=== PATIENT | male | born 1950 | race Caucasian/White ===

== ENCOUNTER 2017-11-12 07:11 | Emergency (ER) | payer MEDICARE, OTHER, SELFPAY ==
[2017-11-12 07:11] VITALS: PULSE 61; RESP 18; TEMP 36.6; O2SAT 96; BMI 34.4
[2017-11-12 07:24] VITALS: BP 130/85; PULSE 61; RESP 14; O2SAT 98
[2017-11-12 07:35] LABS: Bedside Glucose 89 mg/dL (70-110)
--- NOTE | 2017-11-12 07:50 | EKG12_ITS ---
Test Reason : NUMBNESS Blood Pressure : / mmHG Vent. Rate : 055 BPM Atrial Rate : 055 BPM P-R Int : 174 ms QRS Dur : 096 ms QT Int : 428 ms P-R-T Axes : 042 -28 -51 degrees QTc Int : 409 ms Sinus bradycardia Nonspecific T wave abnormality Abnormal ECG Confirmed by CHUCK PARTIDA, SHERLY ([id number]), news editor PIPPA GHOTRA ([id number]) on 11/16/2017 2:31:05 PM Referred By: KELLEE Confirmed By:SHERLY WOODS MD
--- NOTE | 2017-11-12 08:00 | RAD_ITS ---
STUDY: X-RAY CHEST REASON FOR EXAM: Male, 66 years old. Chest pain. Left arm pain. TECHNIQUE: PA and lateral views of the chest. COMPARISON: Comparison is made with prior study dated August 15, 2013. FINDINGS: EKG electrodes are seen. The lungs are clear and expanded. There is no demonstrated pleural abnormality. Normal size heart. Normal mediastinum and mariel. Normal visualized pulmonary arteries. There is atherosclerotic tortuosity of the aortic arch and descending thoracic aorta. Normal visualized thoracic spine. Normal visualized ribs, clavicles, and shoulders. There is no demonstrated abnormality of the visualized soft tissue structures of the upper abdomen. RAD/Chest PA and Lateral IMPRESSION: No acute abnormalities present. Electronically Signed: Cong Burnett MD at 8:47 EST Tel [phone], Service support ,
--- NOTE | 2017-11-12 08:03 | ED.DCSUM_ITS ---
- ER Visit Summary Date of Service: 11/12/17 Chief Complaint: Left arm pain History of Present Illness: The patient is a 66 M resents with paresthesias and left arm pain. Patient states that yesterday he was outside digging post holes and building a ramp. He states a couple times he had a stitch in his chest. Last night around midnight he woke with a pain in his left arm described as medial to posterior near the armpit to the elbow. He then developed a dullness sensation in his fingers particularly the index and long fingers. He states that the ring and little finger are minimally involved. Notes no arm weakness. He has pain in the medial aspect of his arm with full extension at the elbow. Otherwise he has no elbow pain. He notes no loss of muscle strength. No shortness of breath or sweating. Patient denies any neck pain or chest pain with palpation or movement. Physical Examination: Afebrile vital signs are stable Gen: Well-nourished well-developed Head: Normocephalic atraumatic Eyes: Perrl EOMI ENT: TMs clear no rhinorrhea moist mucous membranes Neck: Supple no lymphadenopathy no JVD nontender CVS: Regular rate rhythm no murmurs normal S1-S2 Respiratory: No distress clear to auscultation bilaterally chest nontender Abdomen: Soft nontender nondistended normal bowel sounds no masses Back: Nontender Extremity: Nontender no edema Skin: Normal color no rash Neuro: alert orientated ?3 CN II-XII intact normal strength reflexes gait cerebellar patient has reported decreased sensation over the index and long fingertips. He notes very minimal change in sensation over the ring and little finger tips. There is no thumb involvement. There is no involvement of the forearm. Psych: Normal affect normal mood Test Results: EKG demonstrates a sinus bradycardia at a rate of 55. This appears unchanged from 2013. CBC chemistries were negative. Troponin negative. Emergency Department Course and Treatment: I believe this to be a peripheral nerve problem. The troponin is greater than 8 hours of symptoms. His EKG shows a normal sinus rhythm. Patient will rest the arm avoid strenuous activity. If symptoms do not improve he will follow-up with his primary care physician. Impression: 1. Left arm paresthesias This note was generated with [employer] software. It may contain incorrect words, spelling, and punctuation that were not noted in review of the chart prior to signing ED Disposition - Plan for ED Patient: Disposition: Home or Assisted Living Chief Complaint: Numb/Ting Instructions: ED Paraesthesias Referrals: Jelena Patiño MD [Primary Care Provider] - 1 Week if not improving
[2017-11-12 08:13] LABS: Absolute Lymphocyte Count 1.31 X10^3/ul (0.83-4.51); Absolute Neutrophil Count 2.9 X10^3/uL (2.0-7.7); Basophil# 0.01 X10^3/uL; Basophil% 0.2 % (0-1); Eosinophil# 0.12 X10^3/uL; Eosinophils% 2.4 % (0-5); Hemoglobin 12.1 g/dl (13.0-16.5); Lymphocyte # 1.31 X10^3/ul (4.0); Lymphocyte % 26.4 % (19-41); Mean Corp Hgb Conc 32.7 g/gl (32-36); Mean Corpuscular Hgb 30.2 pg (27.0-32.0); Mean Corpuscular Volume 92.3 fL (80-94); Mean Platelet Vol. 9.3 fl (6.2-12.0); Monocyte# 0.67 X10^3/uL; Monocyte% 13.5 % (0-10); Neutrophil # 2.85 X10^3/uL (2.7-7.7); Neutrophil % 57.5 % (47-70); Platelet Count 187 K/mm3 (150-450); RBC Distribution Width SD 47.1 fl (35.1-43.9); Red Blood Count 4.01 M/mm3 (4.6-6.2)
[2017-11-12 08:16] LABS: POSITIVE COUNT NO; POSITIVE DIFFERENTIAL NO; POSITIVE MORPHOLOGY NO
[2017-11-12 08:26] LABS: Anion Gap 5 (5-15); BUN 20 mg/dL (7-18); BUN/Creat Ratio 20.9 RATIO (10-20); Calcium,Total 8.2 mg/dL (8.5-10.1); Chloride 105 mmol/L (98-107); Creatinine, Serum 0.96 mg/dL (0.70-1.30); EST Glomerular Filtration Rate 84 mL/min (>60); Est Glom Filt Rate - Afr Amer 101 mL/min (>60); Estimated Creatinine Clearance 79.21 ml/min; Glucose 87 mg/dL (74-106); Potassium 4.1 mmol/L (3.5-5.1); Sodium Level 138 mmol/L (136-145)
[2017-11-12 08:59] VITALS: BP 125/84; PULSE 60; RESP 17; O2SAT 94
== END 2017-11-12 09:04 | disposition home or self-care (01) ==
PROVIDERS: Emergency Provider Emergency Medicine; Family Provider Family Medicine; PCP Family Medicine
DX: R20.2 Paresthesia of skin (principal); M79.602 Pain in left arm; I10 Essential (primary) hypertension; R00.1 Bradycardia, unspecified; Z79.82 Long term (current) use of aspirin; Z79.899 Other long term (current) drug therapy
CPT/HCPCS: 71046; 80048; 82962; 84484; 85025; 93005; 99285; A4216

== ENCOUNTER → 2017-12-28 11:08 | Outpatient (CLI) | payer MEDICARE, OTHER, SELFPAY ==
[2017-12-28 12:50] LABS: Anion Gap 7 (5-15); BUN 15 mg/dL (7-18); BUN/Creat Ratio 15.5 RATIO (10-20); Calcium,Total 8.7 mg/dL (8.5-10.1); Chloride 104 mmol/L (98-107); Creatinine, Serum 0.97 mg/dL (0.70-1.30); EST Glomerular Filtration Rate 83 mL/min (>60); Est Glom Filt Rate - Afr Amer 100 mL/min (>60); Glucose 85 mg/dL (74-106); PSA,Total - Annual Screen 0.44 ng/mL (0.00-4.00); Sodium Level 140 mmol/L (136-145); T4 Total, Thyroxin 11.3 ug/dL (4.5-12.1); Thyroid Stim Hormone (TSH) 0.95 uIU/mL (0.358-3.74)
== END ==
PROVIDERS: Family Provider Family Medicine; PCP Family Medicine; Visit Provider Family Medicine
DX: Z00.00 Encounter for general adult medical examination without abnormal findings (principal); I10 Essential (primary) hypertension; E03.9 Hypothyroidism, unspecified; Z12.5 Encounter for screening for malignant neoplasm of prostate
CPT/HCPCS: 36415; 80048; 84153; 84436; 84443; G0103

== ENCOUNTER → 2018-06-29 10:48 | Outpatient (CLI) | payer MEDICARE, OTHER, SELFPAY ==
[2018-06-30 11:10] LABS: Hep C Antibodies <0.1 s/co ratio (0.0-0.9)
== END ==
PROVIDERS: Family Provider Family Medicine; PCP Family Medicine; Visit Provider Family Medicine
DX: Z11.59 Encounter for screening for other viral diseases (principal)
CPT/HCPCS: 36415; 86803

== ENCOUNTER → 2018-12-31 10:32 | Outpatient (CLI) | payer MEDICARE, OTHER, SELFPAY ==
[2018-12-31 12:57] LABS: Cholesterol 181 mg/dL (200); High Density Lipoprotein 49 mg/dL; PSA,Total - Annual Screen 0.33 ng/mL (0.00-4.00); T4 Total, Thyroxin 13.8 ug/dL (4.5-12.1); Thyroid Stim Hormone (TSH) 1.69 uIU/mL (0.358-3.74); Triglycerides 84 mg/dL; Very Low Density Lipoprotein 17 mg/dL (5-40)
== END ==
PROVIDERS: Family Provider Family Medicine; PCP Family Medicine; Referring Provider Family Medicine; Visit Provider Family Medicine
DX: Z00.00 Encounter for general adult medical examination without abnormal findings (principal); I10 Essential (primary) hypertension; E78.5 Hyperlipidemia, unspecified; Z12.5 Encounter for screening for malignant neoplasm of prostate
CPT/HCPCS: 36415; 80061; 84153; 84436; 84443; G0103

== ENCOUNTER → 2020-01-09 10:39 | Outpatient (CLI) | payer MEDICARE, OTHER, SELFPAY ==
[2020-01-09 13:22] LABS: Anion Gap 5 (5-15); BUN 15 mg/dL (7-18); BUN/Creat Ratio 15.4 RATIO (10-20); Calcium,Total 9.1 mg/dL (8.5-10.1); Chloride 105 mmol/L (98-107); Cholesterol 207 mg/dL (200); Creatinine, Serum 0.98 mg/dL (0.70-1.30); EST Glomerular Filtration Rate 81 mL/min (>60); Est Glom Filt Rate - Afr Amer 98 mL/min (>60); Glucose 84 mg/dL (74-106); High Density Lipoprotein 44 mg/dL; Sodium Level 136 mmol/L (136-145); T4 Total, Thyroxin 11.3 ug/dL (4.5-12.1); Thyroid Stim Hormone (TSH) 1.17 uIU/mL (0.358-3.74); Triglycerides 185 mg/dL; Very Low Density Lipoprotein 37 mg/dL (5-40)
== END ==
PROVIDERS: PCP Family Medicine; Visit Provider Family Medicine
DX: I10 Essential (primary) hypertension (principal); E03.9 Hypothyroidism, unspecified
CPT/HCPCS: 36415; 80048; 80061; 84436; 84443

== ENCOUNTER → 2020-04-12 | Outpatient (CLI) | payer MEDICARE, OTHER, SELFPAY | END | disposition home or self-care (01) | PROVIDERS: PCP Family Medicine; Visit Provider Family Medicine | DX: Z20.828 Contact with and (suspected) exposure to other viral communicable diseases (principal) | CPT/HCPCS: 87635; U0003 ==

== ENCOUNTER → 2021-02-22 14:50 | Outpatient (CLI) | payer MEDICARE, OTHER, SELFPAY ==
[2021-02-22 17:52] LABS: Anion Gap 5 (5-15); BUN 12 mg/dL (7-18); BUN/Creat Ratio 10.5 RATIO (10-20); Calcium,Total 8.8 mg/dL (8.5-10.1); Chloride 103 mmol/L (98-107); Cholesterol 223 mg/dL (200); Creatinine, Serum 1.14 mg/dL (0.70-1.30); EST Glomerular Filtration Rate 68 mL/min (>60); Est Glom Filt Rate - Afr Amer 82 mL/min (>60); Glucose 83 mg/dL (74-106); High Density Lipoprotein 45 mg/dL; Potassium 4.1 mmol/L (3.5-5.1); Sodium Level 139 mmol/L (136-145); T4 Total, Thyroxin 6.8 ug/dL (4.5-12.1); Triglycerides 199 mg/dL; Very Low Density Lipoprotein 40 mg/dL (5-40)
== END ==
PROVIDERS: PCP Family Medicine; Referring Provider Family Medicine; Visit Provider Family Medicine
DX: I10 Essential (primary) hypertension (principal); E03.9 Hypothyroidism, unspecified
CPT/HCPCS: 36415; 80048; 80061; 84436; 84443

== ENCOUNTER 2021-09-09 15:16 | Outpatient (CLI) | payer MEDICARE, OTHER, SELFPAY ==
[2021-09-09 16:18] LABS: Thyroid Stim Hormone (TSH) 0.29 uIU/mL (0.358-3.74)
== END 2021-09-09 23:59 | disposition home or self-care (01) ==
LOC: MFPLAB 15:17
PROVIDERS: Nurse Practitioner Family; PCP Family Medicine; Visit Provider Family Medicine
DX: E03.9 Hypothyroidism, unspecified (principal)
CPT/HCPCS: 36415; 84443

== ENCOUNTER 2022-01-20 15:30 | Outpatient (RCR) | payer MEDICARE, OTHER, SELFPAY ==
--- NOTE | 2021-12-06 09:20 | HP.OTEVAL ---
Patient's Visit Information JULIA GILLESPIE is a 71 year old M, referred to Occupational Therapy by JOSLYN PAULA, with a diagnosis of dx of lesion of ulnar nerve LUE, CTS LUE and proximal interphalangeal arthr. Date of Evaluation: 12/04/21 Occupational Therapist: Shereen Clemons, GREG/Rigoberto, CHT - Subjective This 71 year old male was seen for OT eval with dx of lesion of ulnar nerve left UE, Carpal tunnel syndrome left UE and primary osteoarthritis left hand- pt arrives to OT 1 week and 6 days s/p from left endoscopic carpal tunnel and cubital tunnel release- with IF proximal interphalangeal arthroplasty. (DOS 11/21/21) pt arrives today sore and demo with swelling. pt states he is limited with all ADls and IADLs at this time and is motivated to return to his PLOF. - Pain left UE 3 Pain Intensity Range: 2, 4 - ROM Forearm: right WNL left WNL Wrist: right 60/55 left 40/40 ROM Comments: right UD 25 RD 19. left UD 10 RD 15 - Strength Technical Support Specialist: right 105# Left NT Lateral Pinch: right 10# Left NT Tripod Pinch: right 10# left NT - Edema PIP: rigth MF 8.5 left 9.5 Proximal Phalanx: r - Sensation Sensation Comments: tingling - Quick DASH-Disab of Arm,Shoulder& Hand Quick DASH Score: 75.0000 - Goals Goal:100% adherence to protocol: Yes Comment: Dr. Freitas P/O PIPJ silicone arthroplasty protocol Goal:Daily scar massage when approriate: Yes Goal:ROM equal to unaffected hand: Yes Goal:Technical Support Specialist/Pinch strength at least 75% of unaffected hand: Yes Goal:No pain with affected hand use: Yes Goal:Full use of affected hand in daily activities including: Yes Goal:Decrease scar hypersensitivity: Yes - Rehabilitation General Assessment: pt demo with edema limited ROM and healing from the above procedures. pt would benefit from skilled OT services 2x week for 8 weeks to return pt to PLOF with his ADLs and IADls. Today therapist ed. pt on edema control renay, AROM , AAROM and dx recovery time. pt demo understanding and agree to POC. Rehabilitation Potential: Good - Anticipated Interventions A/AAROM/PROM, Edema Control, Scar Care, Triggerpoint Release, Modalities, Orthoses, Joint Protection/Energy Conservation, Ergonomic Education, Fine Motor Coord/Petr, Education re Diagnosis - Visit Plan Frequency: 1-2x /Week Duration: 2 Months General Plan: 2 weeks s/p. Cylindrical PIP splint in full extension. DIP free Movement. edema control. MPJ and DIPJ motion initiated with PIP held at 0*. PIPJ blocking exercises in Oval-8 splint. 3 weeks s/p. Active and PROM exercises are initiated 4x a day for 10 min sessions. ed pt against any lateral stress to the digit . 4 week s/p GOAL 0-45*. AROM of PIPJ increase to 1 hour sessions if the extensor lag i <25*. Resting splint at 0* between ROM sessions. increase time out of splint from flexion if active extension maintained. 6 week s/p GOAL 0-75*. Splint free days, night splinted in extension for 2-3 months. AAROM and PROM end point stretching begins gradually. 8 weeks s/p. Progressive strengthening with small nerf ball and soft putty. By 3 months the goal should be 0-75* of motion and activity as tolerated TEXT: Thank you for the opportunity to evaluate your patient. For Medicare and Medicare HMO plans, please review the plan of care and approve it. It will need to be FAXED BACK to us at [phone] for Medicare purposes. Please let me know if there are questions or concerns regarding this plan of care. Physician Signature: Date:
--- NOTE | 2021-12-10 14:37 | HP.OTEVAL_ITS ---
Patient's Visit Information JULIA GILLESPIE is a 71 year old M, referred to Occupational Therapy by JOSLYN PAULA, with a diagnosis of dx of lesion of ulnar nerve LUE, CTS LUE and proximal interphalangeal arthr. Date of Evaluation: 12/04/21 Occupational Therapist: Shereen Clemons, GREG/Rigoberto, CHT - Subjective This 71 year old male was seen for OT eval with dx of lesion of ulnar nerve left UE, Carpal tunnel syndrome left UE and primary osteoarthritis left hand- pt arrives to OT 1 week and 6 days s/p from left endoscopic carpal tunnel and cubital tunnel release- with IF proximal interphalangeal arthroplasty. (DOS 11/21/21) pt arrives today sore and demo with swelling. pt states he is limited with all ADls and IADLs at this time and is motivated to return to his PLOF. - Pain left UE 3 Pain Intensity Range: 2, 4 - ROM Elbow: right WNL left -5/135 Forearm: right WNL left WNL Wrist: right 60/55 left 40/40 ROM Comments: right UD 25 RD 19. left UD 10 RD 15 - Strength Field Service Representative: right 105# Left NT Lateral Pinch: right 10# Left NT Tripod Pinch: right 10# left NT Strength Comments: will test left at later date - Edema PIP: rigth MF 8.5 left 9.5 - Sensation Sensation Comments: tingling - Quick DASH-Disab of Arm,Shoulder& Hand Quick DASH Score: 75.0000 - Goals Goal:100% adherence to protocol: Yes Comment: Dr. Freitas P/O PIPJ silicone arthroplasty protocol Goal:Daily scar massage when approriate: Yes Goal:ROM equal to unaffected hand: Yes Goal:Field Service Representative/Pinch strength at least 75% of unaffected hand: Yes Goal:No pain with affected hand use: Yes Goal:Full use of affected hand in daily activities including: Yes Goal:Decrease scar hypersensitivity: Yes - Rehabilitation General Assessment: pt demo with edema limited ROM and healing from the above procedures. pt would benefit from skilled OT services 2x week for 8 weeks to return pt to PLOF with his ADLs and IADls. Today therapist ed. pt on edema control renay, AROM , AAROM and dx recovery time. pt demo understanding and agree to POC. Rehabilitation Potential: Good - Anticipated Interventions A/AAROM/PROM, Edema Control, Scar Care, Triggerpoint Release, Modalities, Orthoses, Joint Protection/Energy Conservation, Ergonomic Education, Fine Motor Coord/Petr, Education re Diagnosis - Visit Plan Frequency: 1-2x /Week Duration: 2 Months General Plan: 2 weeks s/p. Cylindrical PIP splint in full extension. DIP free Movement. edema control. MPJ and DIPJ motion initiated with PIP held at 0*. PIPJ blocking exercises in Oval-8 splint. 3 weeks s/p. Active and PROM exercises are initiated 4x a day for 10 min sessions. ed pt against any lateral stress to the digit . 4 week s/p GOAL 0-45*. AROM of PIPJ increase to 1 hour sessions if the extensor lag i <25*. Resting splint at 0* between ROM sessions. increase time out of splint from flexion if active extension maintained. 6 week s/p GOAL 0-75*. Splint free days, night splinted in extension for 2-3 months. AAROM and PROM end point stretching begins gradually. 8 weeks s/p. Progressive strengthening with small nerf ball and soft putty. By 3 months the goal should be 0-75* of motion and activity as tolerated TEXT: Thank you for the opportunity to evaluate your patient. For Medicare and Medicare HMO plans, please review the plan of care and approve it. It will need to be FAXED BACK to us at [phone] for Medicare purposes. Please let me know if there are questions or concerns regarding this plan of care. Physician Signature: Date:
--- NOTE | 2022-01-20 17:16 | HP.OTREVAL ---
JOSLYN PAULA, It has been my pleasure to treat JULIA GILLESPIE over the last 14 visits for dx of lesion of ulnar nerve LUE, CTS LUE and proximal interphalangeal arthr. Please see the progress note below for an update on the occupational therapy plan of care! Subjective: pt arrives with his OT session with wes Rose ireneo his ability- states he still struggles with reaching some cords- and would like to know what he can do to improve his motion- Objective/Function: PIP 65* flexion and DIP continues to measure at 70* flexion but painful-. noted MCP deviation with strengthening- pt recognized the deviations and therapist gave ex. pt was told about silver ring splints. therapist ed. pt that the swelling should go down and after some more stabilization he can look at that option. Plan Visits in this POC: pt to work on HEP and touch base with OT in 8 weeks Plan: pt to work on strengthening-. IF ADD/ABD- with band- edema control and hook fist and blocking to gain increase IF control and Goals - Goals Patient Goals: Regain Mobility, Use Hand/Wrist/Arm Normally Again Goal:100% adherence to protocol: Yes Goal:Daily scar massage when approriate: Yes Goal:ROM equal to unaffected hand: Yes Goal:Compliance Coordinator/Pinch strength at least 75% of unaffected hand: Yes Goal:No pain with affected hand use: Yes Goal:Full use of affected hand in daily activities including: Yes Goal:Decrease scar hypersensitivity: Yes Anticipated Interventions Anticipated Interventions: A/AAROM/PROM, Edema Control, Scar Care, Triggerpoint Release, Modalities, Orthoses, Joint Protection/Energy Conservation, Ergonomic Education, Fine Motor Coord/Petr, Education re Diagnosis Please do not hesitate to contact me at [phone] by phone or if you have questions or concerns regarding this new plan of care! Sincerely, Shereen Clemons, OTR/L, CHT
--- NOTE | 2022-05-20 13:17 | HP.OT.NRP ---
JULIA GILLESPIE was seen in my office for initial evaluation on 12/04/21. The following Plan of Care was established for this patient: Initial Frequency: 1-2x /Week Initial Duration: 2 Months Plan: pt to work on strengthening-. IF ADD/ABD- with band- edema control and hook fist and blocking to gain increase IF control and Anticipated Interventions: A/AAROM/PROM, Edema Control, Scar Care, Triggerpoint Release, Modalities, Orthoses, Joint Protection/Energy Conservation, Ergonomic Education, Fine Motor Coord/Petr, Education re Diagnosis This patient was last seen in our office 12/04/21. Pertinent comments regarding their Occupational therapy will appear below: pt was seen for 14 OT sessions. pt made good gains with ROM and strength- pt has not scheduled further apts and due to time lapse in services pt d/c at this time. At this point I will be discontinuing this patient from occupational therapy. I would be happy to see this patient again in the future if found appropriate by the physician. Thank you! Shereen Clemons, OTR/L, CHT
== END 2022-01-20 19:00 | disposition home or self-care (01) ==
LOC: OT 15:30
PROVIDERS: PCP Family Medicine
DX: G56.22 Lesion of ulnar nerve, left upper limb (principal); G56.02 Carpal tunnel syndrome, left upper limb; M19.042 Primary osteoarthritis, left hand
CPT/HCPCS: 97110; 97140; 97166; 97530

== ENCOUNTER → 2022-02-10 | Outpatient (CLI) | payer MEDICARE, OTHER, SELFPAY ==
[2022-02-10 18:17] LABS: Anion Gap 8 (5-15); BUN 19 mg/dL (7-18); BUN/Creat Ratio 14.2 RATIO (10-20); Calcium,Total 9.5 mg/dL (8.5-10.1); Chloride 104 mmol/L (98-107); Cholesterol 209 mg/dL (200); Creatinine, Serum 1.34 mg/dL (0.70-1.30); EST Glomerular Filtration Rate 56 mL/min (>60); Est Glom Filt Rate - Afr Amer 68 mL/min (>60); Glucose 127 mg/dL (74-106); High Density Lipoprotein 44 mg/dL; Sodium Level 137 mmol/L (136-145); T4 Total, Thyroxin 11.4 ug/dL (4.5-12.1); Thyroid Stim Hormone (TSH) 4.63 uIU/mL (0.358-3.74); Triglycerides 232 mg/dL; Very Low Density Lipoprotein 46 mg/dL (5-40)
== END | disposition home or self-care (01) ==
LOC: MFPLAB 15:13
PROVIDERS: PCP Family Medicine; Visit Provider Family Medicine
DX: I10 Essential (primary) hypertension (principal); E03.9 Hypothyroidism, unspecified
CPT/HCPCS: 36415; 80048; 80061; 84436; 84443

== ENCOUNTER → 2022-05-16 | Outpatient (CLI) | payer MEDICARE, OTHER, SELFPAY ==
[2022-05-16 10:38] LABS: Anion Gap 7 (5-15); BUN 18 mg/dL (7-18); BUN/Creat Ratio 18.4 RATIO (10-20); Calcium,Total 9.1 mg/dL (8.5-10.1); Chloride 103 mmol/L (98-107); Creatinine, Serum 0.98 mg/dL (0.70-1.30); EST Glomerular Filtration Rate 80 mL/min (>60); Est Glom Filt Rate - Afr Amer 97 mL/min (>60); Glucose 97 mg/dL (74-106); Potassium 4.5 mmol/L (3.5-5.1); Sodium Level 137 mmol/L (136-145)
== END | disposition home or self-care (01) ==
LOC: MFPLAB 09:17
PROVIDERS: PCP Family Medicine; Referring Provider Family Medicine; Visit Provider Nurse Practitioner Family
DX: Z13.1 Encounter for screening for diabetes mellitus (principal)
CPT/HCPCS: 36415; 80048; 84403

== ENCOUNTER → 2022-11-06 | Outpatient (CLI) | payer MEDICARE, OTHER, SELFPAY ==
--- NOTE | 2022-11-06 16:16 | RAD_ITS ---
STUDY: X-RAY CHEST REASON FOR EXAM: Male, 71 years old. Cough. TECHNIQUE: Frontal and lateral views of the chest. COMPARISON: November 2017. FINDINGS: Stable hyperinflation There is no demonstrated pleural abnormality. Cardiomegaly unchanged. Normal mediastinum and mariel. Normal visualized pulmonary arteries. Stable aortic tortuosity with calcification. Diffuse thoracic spondylosis unchanged. Normal visualized ribs, clavicles, and shoulders. There is no demonstrated abnormality of the visualized soft tissue structures of the upper abdomen. RAD/Chest PA and Lateral IMPRESSION: Stable cardiomegaly with hyperinflation. No active or acute cardiopulmonary disease. Electronically Signed: Juvenal Nino, at 9:22 EST ,
== END | disposition home or self-care (01) ==
LOC: MTRAD 16:13
PROVIDERS: PCP Family Medicine; Referring Provider Family Medicine; Visit Provider Family Medicine
DX: R05.9 Cough, unspecified (principal)
CPT/HCPCS: 71046

== ENCOUNTER → 2022-11-10 | Outpatient (CLI) | payer MEDICARE, OTHER, SELFPAY ==
[2022-11-10 13:54] LABS: AST(SGOT) 29 U/L (15-37); Alanine Aminotransfer ALT/SGPT 33 U/L (16-61); Anion Gap 7 (5-15); BUN 16 mg/dL (7-18); BUN/Creat Ratio 16.9 RATIO (10-20); Calcium,Total 8.8 mg/dL (8.5-10.1); Chloride 102 mmol/L (98-107); Cholesterol 175 mg/dL (200); Creatinine, Serum 0.95 mg/dL (0.70-1.30); EST Glomerular Filtration Rate 83 mL/min (>60); Est Glom Filt Rate - Afr Amer 101 mL/min (>60); Glucose 85 mg/dL (74-106); High Density Lipoprotein 58 mg/dL; Potassium 3.8 mmol/L (3.5-5.1); Sodium Level 138 mmol/L (136-145); T4 Total, Thyroxin 8.4 ug/dL (4.5-12.1); Triglycerides 92 mg/dL; Very Low Density Lipoprotein 18 mg/dL (5-40)
[2022-11-10 15:22] LABS: Microalbumin,Random Urine 5.5 mg/L (NO RANGE EST.); Microalbumin:Creatinine Ratio 5.1 mg/g CRE (<30 mg/g CRE)
== END | disposition home or self-care (01) ==
LOC: MFPLAB 10:51
PROVIDERS: PCP Family Medicine; Visit Provider Family Medicine
DX: E03.9 Hypothyroidism, unspecified (principal); E78.5 Hyperlipidemia, unspecified; I10 Essential (primary) hypertension
CPT/HCPCS: 36415; 80048; 80061; 82043; 82570; 84436; 84443; 84450; 84460

== ENCOUNTER → 2023-11-17 | Outpatient (CLI) | payer MEDICARE, OTHER, SELFPAY ==
[2023-11-17 18:33] LABS: AST(SGOT) 73 U/L (15-37); Alanine Aminotransfer ALT/SGPT 43 U/L (16-61); Anion Gap 7 (5-15); BUN 9 mg/dL (7-18); BUN/Creat Ratio 9.8 RATIO (10-20); Chloride 105 mmol/L (98-107); Cholesterol 190 mg/dL (200); Creatinine, Serum 0.92 mg/dL (0.70-1.30); EST Glomerular Filtration Rate 87 mL/min (>60); Est Glom Filt Rate - Afr Amer 105 mL/min (>60); Glucose 83 mg/dL (74-106); High Density Lipoprotein 71 mg/dL; Potassium 3.8 mmol/L (3.5-5.1); Sodium Level 137 mmol/L (136-145); T4 Total, Thyroxin 11.8 ug/dL (4.5-12.1); Thyroid Stim Hormone (TSH) 5.19 uIU/mL (0.358-3.74); Triglycerides 49 mg/dL; Very Low Density Lipoprotein 10 mg/dL (5-40)
[2023-11-18 17:59] LABS: Protein, Urine (Random) 8.9 mg/dL (<11.9); Protein:Creat Ratio 186 mg/g CRE (0-200)
== END | disposition home or self-care (01) ==
LOC: MFPLAB 15:04
PROVIDERS: PCP Family Medicine; Visit Provider Family Medicine
DX: I10 Essential (primary) hypertension (principal); E03.9 Hypothyroidism, unspecified; E78.5 Hyperlipidemia, unspecified
CPT/HCPCS: 36415; 80048; 80061; 82570; 84156; 84436; 84443; 84450; 84460

== ENCOUNTER → 2024-05-17 | Outpatient (CLI) | payer MEDICARE, OTHER, SELFPAY ==
[2024-05-17 18:07] LABS: PSA,Total - Annual Screen 0.36 ng/mL (0.00-4.00)
== END | disposition home or self-care (01) ==
LOC: MFPLAB 16:10
PROVIDERS: PCP Family Medicine; Visit Provider Family Medicine
DX: Z12.5 Encounter for screening for malignant neoplasm of prostate (principal)
CPT/HCPCS: 36415; 84153; G0103

== ENCOUNTER → 2024-06-08 | Outpatient (CLI) | payer MEDICARE, OTHER, SELFPAY ==
--- NOTE | 2024-06-08 07:14 | CT_ITS ---
STUDY: LOW DOSE CT LUNG CANCER SCREENING REASON FOR EXAM: Male, 73 years old. SCREENING FOR LUNG CANCER. Patient smokes half a pack per day for 14 years. RADIATION DOSAGE (If Supplied By Facility): CTDIvol = ( 3.02 ) mGy, DLP = ( 114.38 ) mGycm TECHNIQUE: No contrast was administered. Low dose technique was utilized (average mAS-38 and kVp 120). 1.25 mm axial source images with a slice interval of 1.25-mm were reconstructed in lung windows. 2.5 mm axial source images with a slice interval of 2.5-mm were reconstructed in lung windows. 5.0 mm axial source images with a slice interval of 5.0-mm were reconstructed in soft tissue windows. COMPARISON: None. NODULES: No suspicious nodules are seen. Emphysema: Mild degree of erythematous changes. Mild degree of increased linear markings at the lung bases suggestive of bibasilar scarring. Endobronchial lesion: None Aorta: Atherosclerotic plaque formation of the aortic arch. CORONARY ARTERIES: Coronary artery calcification is seen. Heart: Unremarkable Pulmonary artery: Unremarkable Mediastinal nodes: Small mediastinal lymph nodes. Other chest and abdominal findings: CT/Low Dose CT Lung Screening IMPRESSION: Lung-RADS category 2 - Continue annual screening with LDCT in 12 months. IMPORTANT NOTES FOR USE: ACR Lung-RADS Version 1.1 Assessment Categories Release Date: 2018 Category: Coded 0-4 bases on nodule(s) with highest degree of suspicion. Negative screen is defined as categories 1 and 2; a positive screen is defined as categories 3 and 4. Category 3 and 4A nodules that are unchanged on interval CT should be coded as category 2, and individuals returned to screening in 12 months. Category 4X: Category 3 or 4 nodules with additional imaging findings that increase the suspicion of lung cancer, such as spiculation, GGN that doubles in size in 1 year, enlarged lymph notes, etc. Category Modifiers: S (significant finding unrelated to lung cancer) Electronically Signed: Cong Burnett MD at 15:23 EDT ,
== END | disposition home or self-care (01) ==
LOC: CT 07:11
PROVIDERS: PCP Family Medicine; Referring Provider Family Medicine; Visit Provider Family Medicine
DX: Z12.2 Encounter for screening for malignant neoplasm of respiratory organs (principal); F17.210 Nicotine dependence, cigarettes, uncomplicated
CPT/HCPCS: 71271

== ENCOUNTER → 2024-11-04 | Outpatient (CLI) | payer MEDICARE, OTHER, SELFPAY ==
[2024-11-04 22:04] LABS: Alanine Aminotransfer ALT/SGPT 26 U/L (<=46); Anion Gap 10 (5-15); BUN 20 mg/dL (4-19); BUN/Creat Ratio 23.1 RATIO (10-20); Calcium 9.3 mg/dL (7.6-11.0); Carbon Dioxide 25.3 mmol/L (22.0-29.0); Chloride 100 mmol/L (96-108); Creatinine, Serum 0.85 mg/dL (0.70-1.20); EST Glomerular Filtration Rate 92 (>60); Glucose 81 mg/dL (70-99); Potassium 3.9 mmol/L (3.3-5.1); Sodium Level 136 mmol/L (133-145); T4 Total, Thyroxin 7.7 ug/dL (4.5-12.1)
[2024-11-04 22:31] LABS: Cholesterol 168 mg/dL (<=200); High Density Lipoprotein 63 mg/dL; Low Density Lipoprotein Calc. 92 mg/dL; Triglycerides 66 mg/dL; Very Low Density Lipoprotein 13 mg/dL (5-40); cholesterol:hdl ratio screen 2.68
[2024-11-04 22:51] LABS: AST(SGOT) 37 U/L (<=37)
== END | disposition home or self-care (01) ==
LOC: MTLAB 14:18
PROVIDERS: PCP Family Medicine; Referring Provider Family Medicine; Visit Provider Family Medicine
DX: I10 Essential (primary) hypertension (principal); E03.9 Hypothyroidism, unspecified; E78.5 Hyperlipidemia, unspecified; N40.0 Benign prostatic hyperplasia without lower urinary tract symptoms
CPT/HCPCS: 36415; 80048; 80061; 84153; 84436; 84443; 84450; 84460

== ENCOUNTER → 2025-04-17 | Outpatient (CLI) | payer MEDICARE, OTHER, SELFPAY | END | disposition home or self-care (01) | LOC: MFPLAB 10:16 | PROVIDERS: PCP Family Medicine; Visit Provider Family Medicine | DX: E03.9 Hypothyroidism, unspecified (principal) | CPT/HCPCS: 36415; 84443 ==

== ENCOUNTER → 2025-06-07 | Outpatient (CLI) | payer MEDICARE, OTHER, SELFPAY | END | disposition home or self-care (01) | LOC: MFPLAB 14:28 | PROVIDERS: PCP Family Medicine; Visit Provider Family Medicine | DX: E03.9 Hypothyroidism, unspecified (principal) | CPT/HCPCS: 36415; 84439; 84443 ==

== ENCOUNTER → 2025-06-28 | Outpatient (CLI) | payer MEDICARE, OTHER, SELFPAY ==
--- NOTE | 2025-06-28 18:10 | CT_ITS ---
PROCEDURE: Low-dose CT lung screening 06/28/2025 REASON FOR EXAM: NICOTINE DEPENDENCE TECHNIQUE: Procedure Code: [id number] Modality: CT Procedure: LOW DOSE CT LUNG SCREENING Coronal and Sagittal reconstruction series were provided. One or more dose reduction techniques were used (e.g., Automated exposure control, adjustment of the mA and/or kV according to patient size, use of iterative reconstruction technique). REFERENCE LINK: We[employer]In Lung-RADS RADIATION DOSE SUMMARY: CTDlvol: 3.02 mGy DLP: 116.26 mGycm COMPARISON: None FINDINGS: PULMONARY NODULES: (Only nodules >3mm are reported) Lower neck:The thyroid gland is grossly unremarkable. There is no supraclavicular lymphadenopathy. Mediastinum:There are multiple reactive mediastinal lymph nodes, the largest a pretracheal lymph node, measuring 1.8 x 1.2 cm. Heart and Vasculature:The heart size is normal. There is calcific vascular disease of the coronary arteries and thoracic aorta. There is tortuosity of the thoracic aorta. Esophagus:Normal. Upper Abdomen:There is calcific vascular disease of the visualized abdominal aorta. Chest wall:The soft tissues of the chest wall appear unremarkable. There is no axillary lymphadenopathy. There is moderate multilevel degenerative disc disease of the thoracic spine. Lungs, airways and pleura: There is mild upper lobe predominant centrilobular emphysema. There is linear scarring in the posterior basilar segment of the lower lobe of both lungs. There are no pulmonary nodules. There are no pleural effusions. CT/Low Dose CT Lung Screening IMPRESSION: 1. Emphysema. 2. There are no pulmonary nodules. 3. Calcific vascular disease. 4. Other findings as noted. Lung-RADS Category: 1 S: Negative. Emphysema. Calcific vascular disease. Recommendation: Follow up low-dose chest CT in 12 months. Reading Location: [place] [id number]
--- OUTSIDE RECORDS SUMMARY | 2025-06-28 18:18 | XMS RPT_ITS | CCD ---
Author Organization [facility] Care Team Providers Care School Janitor Name Role Phone Dk Mahoney Rigoberto Unavailable Unavailable Gianna Ruff N Unavailable Gianna Ruff N Unavailable Valerie Ruffica N Unavailable Gianna Ruff N Unavailable Mingo Perla) Primary Care Provider Damaris VELOZ, Doreen Patel Unavailable Mingo Perla) Primary Care Provider Dr. Jelena Patiño MD Primary Care Provider Dr. Jelena Patiño MD Attending Provider Dr. Jelena Patiño MD Referring Provider Dr. Jelena Patiño MD Primary Care Provider [phone] Dr. Danish Cade MD Attending Provider Dr. Jelena Patiño MD Primary Care Physician Dr. Danish Cade MD Attending Physician [phone] Dr. Karri Perla MD Attending Physician [phone] [employer] INVENTORY SPECIALIST MANAGER, Rocky Referring Unavailable [employer] INVENTORY SPECIALIST MANAGER, Rocky Attending Unavailable Danish Cade Primary Care Unavailable Danish Cade Attending Unavailable Jelena Patiño Primary Care Unavailable Karri Perla Attending Unavailable Jelena Patiño Primary Care Unavailable Jelena Patiño Referring Unavailable Jelena Patiño Attending Unavailable Jelena Patiño Primary Care Unavailable Allergies Allergy Classification Reported Allergen(s) Allergy Type Date of Onset Reaction(s) Facility (1 source) Mold Extract; Translations: [MOLD] Drug Allergy 9 [facility] Work Phone: (1 source) peanut; Translations: [PEANUTS] food allergy [address] [facility] Work Phone: (1 source) POISON EULALIA; Translations: [POISON EULALIA] allergy to substance [address] [facility] Work Phone: (1 source) PLANT POLLENS drug allergy [address] [facility] Work Phone: Medications Current Medications Medication Drug Class(es) Dates Sig (Normalized) Sig (Original) citalopram 20 mg oral tablet (12 sources) Serotonin Reuptake Inhibitor Start: 07-14-2013 take 1 tablet by mouth once daily fluticasone furoate 0.0275 mg/actuat metered dose nasal spray (7 sources) Corticosteroid Start: 07-14-2013 Multivitamin With Folic Acid (Thera) 1 TABLET tablet (7 sources) Start: 07-14-2013 take 1 tablet by mouth once daily Multivitamin With Folic Acid (Thera) 1 TABLET tablet Active 1 TABLET PO DAILY July 14, 2013 10:10am Start: 07-14-2013 take 1 tablet by rafiq th once daily Start: 07-14-2013 take 1 tablet by rafiq th once daily Multivitamin With Folic Acid (Thera) 1 TABLET tablet Active 1 {tbl} PO DAILY July 14, 2013 1:00am Start: 07-14-2013 take 1 tablet by rafiq th once daily Multivitamin With Folic Acid (Thera) 1 TABLET tablet Active 1 TABLET PO DAILY July 14, 2013 12:00am Start: 07-14-2013 take 1 tablet by rafiq th once daily Multivitamin With Folic Acid (Thera) 1 TABLET tablet Active 1 TABLET PO DAILY July 14, 2013 1:00am Completed/Discontinued Medications Medication Drug Class(es) Dates Sig (Normalized) Sig (Original) aspirin 81 mg delayed release oral tablet (13 sources) Nonsteroidal Anti-inflammatory Drug Start: 07-08-2019 ASPIRIN EC 81 MG TBEC 1 tablet once a day aspirin [id number] Arielle Escobarmaria d CATES Start: 07-14-2013 take 1 tablet by rafiq th once daily take 1 tablet by rafiq th once daily ASPIRIN 81 MG TABS One tablet by mouth daily ASPIRIN [id number] Julia Vo take 1 tablet by rafiq th once daily ASPIRIN 81 MG TABS One tablet by mouth daily ASPIRIN [id number] Julia Franklin Gilda benazepril hydrochloride 10 mg oral tablet (13 sources) Angiotensin Converting Enzyme Inhibitor Start: 07-08-2019 LOTENSIN 10 MG TABS 1 tablet once a day benazepril [id number] Arielle Escobarmaria d CATES Start: 07-14-2013 take 10 mg by mouth once daily take 1 tablet by rafiq th once daily LOTENSIN 10 MG TABS One tablet by mouth daily BENAZEPRIL HCL [id number] Julia Vo DULoxetine 60 mg delayed release oral capsule (1 source) Serotonin and Norepinephrine Reuptake Inhibitor DULOXETINE HCL 60 MG CPEP 1 capsule once a day duloxetine [id number] Mindy Snyder RN finasteride 5 mg oral tablet (5 sources) 5-alpha Reductase Inhibitor FINASTERIDE 5 MG TAB S 1/4 tab daily FINASTERIDE 88109683554 Julia Vo 120 actuat formoterol fumarate 0.005 mg/actuat / mometasone furoate 0.1 mg/actuat metered dose inhaler (5 sources) Corticosteroid, beta2-Adrenergic Agonist Start: 06-01-2017 DULERA 100-5 MCG/ACT AERO MOMETASONE FURO-FORMOTEROL FUM [id number] Dk Mahoney Start: 06-01-2017 DULERA 100-5 M CG/ACT AERO MOMETASONE FURO- FORMOTEROL FUM [id number] Dk Mahoney MULTIPLE VITAMINS-MINERALS (1 source) Start: 07-08-2019 ONE DAILY MULT IVITAMIN ADULT TABS 1 tablet once a day MULTIPLE VITAMINS-MINERALS Arielle Michelle LPN pantoprazole 40 mg delayed release oral tablet (5 sources) Proton Pump Inhibitor Start: 06-01-2017 PANTOPRAZOLE SODIUM 40 MG [facility] PANTOPRAZOLE SODIUM [id number] Dk Mahoney levothyroxine sodium 0.175 mg oral tablet (13 sources) l-Thyroxine Start: 12-03-2021 LEVOTHYROXINE SODIUM 175 MCG TABS 1 tablet once a day levothyroxine [id number] Arielle Michelle DARRYN Start: 07-14-2013 take 1 tablet by rafiq th once daily take 1 tablet by rafiq th once daily SYNTHROID 200 MCG TABS One tablet by mouth daily LEVOTHYROXINE SODIUM [id number] Julia Vo Problems Active Problems Problem Classification Problem Date Documented Da te Episodic/Chronic Abdominal hernia (17 sources) Umbilical hernia; Translations: [Irreducible umbilical hernia] Resolved: 07-18-2013 07-27-2013 Episodic Essential hypertension (1 source) Essential (primary) hypertension; Translations: [Essential (primary) hypertension] Onset: 11-17-2024 Chronic Immunizations and screening for infectious disease (7 sources) Patient encounter status; Translations: [Encounter for screening for COVID-19] 09-17-2021 Episodic Osteoarthritis (1 source) Primary osteoarthritis, left hand; Translations: [Osteoarthrosis, localized, primary, hand] Onset: 07-11-2019 07-11-2019 Chronic Other nervous system disorders (1 source) Lesion of ulnar nerve, left upper limb; Translations: [Lesion of ulnar nerve] Onset: 10-25-2021 10-25-2021 Chronic Other nervous system disorders (1 source) Carpal tunnel syndrome, left upper limb; Translations: [Carpal tunnel syndrome] Onset: 10-25-2021 10-25-2021 Chronic Other nervous system disorders (1 source) Anesthesia of skin; Translations: [Anesthesia of skin] Onset: 10-23-2021 10-23-2021 Episodic Residual codes; unclassified (2 sources) Pain; Translations: [Pain, unspecified] 10-16-2020 Episodic Substance-related disorders (1 source) Nicotine dependence, cigarettes, uncomplicated; Translations: [Nicotine dependence, cigarettes, uncomplicated] Onset: 06-19-2025 Chronic Thyroid disorders (1 source) Hypothyroidism, unspecified; Translations: [Hypothyroidism, unspecified] Onset: 06-13-2025 Chronic Past or Other Problems Problem Classification Problem Date Documented Da te Episodic/Chronic Spondylosis; intervertebral disc disorders; other back problems (3 sources) Low back pain; Translations: [Low back pain] Onset: 06-02-2017 06-02-2017 Episodic Unclassified (1 source) Problem Results Test Name Value Interpretation Reference Range Facility T4 Free Directon 06-07-2025 T4 FREE DIRECT 1.80 ng/dL High 0.76-1.46 [facility] Comment on above: Order Comment: Order Date: 04/21/25 Order Info: 3016-3 - TSH Order Info: 302-7 - T4F Performed By: #### L 506.0400 #### [facility] [address] [place], [place], [id number] T4 freeOrdered By: Karri fitzgerald on 06-07-2025 Free T4 [Mass/Vol] 1.80 ng/dL High 0.76-1.46 [facility] TSH DL <= 0.005 mIU/L QnOrde red By: Karri Perla on 06-07-2025 TSH Qn 0.715 uIU/mL 0.300-4.200 [facility] Thyroid Stim Hormone (TSH)on 06-07-2025 TSH 0.715 uIU/mL Normal 0.300-4.200 [facility] Comment on above: Order Comment: Order Date: 04/21/25 Order Info: [id number] - TSH Order Info: [id number] - T4F Performed By: #### L 501.9520 #### [facility] [address] [facility] [place], [place], [id number] TSH DL <= 0.005 mIU/L QnOrde red By: Jelena Patiño on 04-17-2025 TSH Qn 0.227 uIU/mL Low 0.300-4.200 [facility] Thyroid Stim Hormone (TSH)on 04-17-2025 TSH 0.227 uIU/mL Low 0.300-4.200 [facility] Comment on above: Order Comment: Order Date: 04/21/25 Order Info: [id number] - TSH Order Info: [id number] - T4F Performed By: #### L 501.9520 #### [facility] [address], [address] AST(SGOT)on 11-04-2024 AST [Catalytic activity/Vol] 37 U/L Normal <=37 [facility] Comment on above: Order Comment: ADD O N AST AND PSAD TO LABS DONE 11 04 24 Performed By: #### L 501.0900, L500.4100, L501.9520, L501.9940, L500.2500, L501.4405, L501.4100, L501.9310 #### [facility] [address] [place], [address] Alanine Aminotransferas (SGP T)on 11-04-2024 ALT [Catalytic activity/Vol] 26 U/L Normal <=46 [facility] Comment on above: Performed By: #### L 501.0900, L500.4100, L501.9520, L501.9940, L500.2500, L501.4405, L501.4100, L501.9310 #### [facility] [address] [place], [address] BUN/creatinine ratioOrdered By: Jelena Patiño on 11-04-2024 Urea nitrogen/Creatinine [Mass ratio] 23.1 mg/mg High 10-20 [facility] Basic Metabolic Profile (BMP )on 11-04-2024 Anion gap [Moles/Vol] 10 mmol/L Normal 5-15 [facility] Comment on above: Performed By: #### L 501.0900, L500.4100, L501.9520, L501.9940, L500.2500, L501.4405, L501.4100, L501.9310 #### [facility] [address], [address] BUN/CRE 23.1 RATIO High - [facility] Comment on above: Performed By: #### L 501.0900, L500.4100, L501.9520, L501.9940, L500.2500, L501.4405, L501.4100, L501.9310 #### [facility] [address] [place], [address] Calcium [Mass/Vol] 9.3 mg/dL Normal 7.6-11.0 [facility] Comment on above: Performed By: #### L 501.0900, L500.4100, L501.9520, L501.9940, L500.2500, L501.4405, L501.4100, L501.9310 #### [facility] [address] [place], [address] Chloride [Moles/Vol] 100 mmol/L Normal 96-108 [facility] Comment on above: Performed By: #### L 501.0900, L500.4100, L501.9520, L501.9940, L500.2500, L501.4405, L501.4100, L501.9310 #### [facility] [address] [place], [address] CO2 [Moles/Vol] 25.3 mmol/L Normal 22.0-29.0 [facility] Comment on above: Performed By: #### L 501.0900, L500.4100, L501.9520, L501.9940, L500.2500, L501.4405, L501.4100, L501.9310 #### [facility] [address] [place], [address] Creatinine [Mass/Vol] 0.85 mg/dL Normal 0.70-1.20 [facility] Comment on above: Performed By: #### L 501.0900, L500.4100, L501.9520, L501.9940, L500.2500, L501.4405, L501.4100, L501.9310 #### [facility] [address] [place], [address] GFR/1.73 sq M.predicted among non-blacks MDRD (S/P/Bld) [Vol rate/Area] 92 mL/min/{1.73_m2} Normal >60 [facility] Comment on above: Result Comment: mL/m in/1.73m2 CKD-EPI Creatinine Equation (2020) Performed By: #### L 501.0900, L500.4100, L501.9520, L501.9940, L500.2500, L501.4405, L501.4100, L501.9310 #### [facility] [address] [place], [address] Glucose [Mass/Vol] 81 mg/dL Normal 70-99 [facility] Comment on above: Performed By: #### L 501.0900, L500.4100, L501.9520, L501.9940, L500.2500, L501.4405, L501.4100, L501.9310 #### [facility] [address] [place], [address] Potassium [Moles/Vol] 3.9 mmol/L Normal 3.3-5.1 [facility] Comment on above: Performed By: #### L 501.0900, L500.4100, L501.9520, L501.9940, L500.2500, L501.4405, L501.4100, L501.9310 #### [facility] [address] [place], [address] Sodium [Moles/Vol] 136 mmol/L Normal 133-145 [facility] Comment on above: Performed By: #### L 501.0900, L500.4100, L501.9520, L501.9940, L500.2500, L501.4405, L501.4100, L501.9310 #### [facility] [address] [place], [address] Urea nitrogen [Mass/Vol] 20 mg/dL High 4-19 [facility] Comment on above: Performed By: #### L 501.0900, L500.4100, L501.9520, L501.9940, L500.2500, L501.4405, L501.4100, L501.9310 #### [facility] [address] [place], [address] Calculated very low density lipoprotein (VLDL) cholesterol measurementOrdered By: Jelena Patiño on 11-04-2024 VLDL Cholesterol 13 mg/dL 5-40 [facility] Carbon dioxide measurementOr dered By: Jelena Patiño on 11-04-2024 CO2 [Moles/Vol] 25.3 mmol/L 22.0-29.0 [facility] Chloride measurementOrdered By: Jelena Patiño on 11-04-2024 Chloride [Moles/Vol] 100 mmol/L 96-108 [facility] Diagnostic total prostate sp ecific antigen (PSA) measurementOrdered By: Jelena Patiño on 11-04-2024 Prostate Specific Antigen Total 0.40 ng/mL 0.00-4.00 [facility] Comment on above: This test was perfor med using the [facility] tPSA method. Measured values of a patient sample can vary depending on the testing procedure used. PSA values determined on patient samples by different testing procedures cannot be used interchangeably. If there is a change in PSA assays while monitoring therapy, sequential testing should be performed to confirm baseline values. GFR/1.73 sq M.predicted cherry g non-blacks MDRD (S/P/Bld) [Vol rate/Area]Ordered By: Jelena Patiño on 11-04-2024 Estimated GFR (MDRD) Non-Af Amer 92 >60 [facility] Comment on above: mL/min/1.73m2 CKD-EP I Creatinine Equation (2020) LDL calc ser/plasOrdered By: Jelena Patiño on 11-04-2024 LDL Cholesterol, Calculated 92 mg/dL [facility] Comment on above: Gscorkewaw=225-946 m g/dL & Higher Euog=651 mg/dL or greater Laboratory - Chemistry and C hemistry - challengeOrdered By: Jelena Patiño on 11-04-2024 AST [Catalytic activity/Vol] 37 U/L <38 [facility] Lipid Profileon 11-04-2024 CHOL:HDL 2.68 Normal [facility] Comment on above: Order Comment: ADD O N AST AND PSAD TO LABS DONE 11 04 24 Performed By: #### L 501.0900, L500.4100, L501.9520, L501.9940, L500.2500, L501.4405, L501.4100, L501.9310 #### [facility] [address] [facility] [address] Cholesterol [Mass/Vol] 168 mg/dL Normal <=200 [facility] Comment on above: Order Comment: ADD O N AST AND PSAD TO LABS DONE 11 04 24 Result Comment: Chol esterol level, Desirable <200 mg/dL Borderline high cholesterol 200-239 mg/dL High cholesterol >=240 mg/dL Recommendations of the NCEP Adult Treatment Panel for the following risk-cutoff thresholds for the [place] population. Performed By: #### L 501.0900, L500.4100, L501.9520, L501.9940, L500.2500, L501.4405, L501.4100, L501.9310 #### [facility] [address] [place] [id number] [phone] Cholesterol in HDL [Mass/Vol] 63 mg/dL Normal [facility] Comment on above: Order Comment: ADD O N AST AND PSAD TO LABS DONE 11 04 24 Result Comment: Carline onal Cholesterol Education Program (NCEP) guidelines: <40 mg/dL: Low HDL-cholesterol (major risk factor for CHD) >= 60 mg/dL: High HDL-cholesterol (negative risk factor for CHD) HDL-cholesterol is affected by a number of factors, e.g. smoking, exercise, hormones, sex and age. Performed By: #### L 501.0900, L500.4100, L501.9520, L501.9940, L500.2500, L501.4405, L501.4100, L501.9310 #### [facility] [address] [place] [id number] Cholesterol in LDL [Mass/Vol] 92 mg/dL Normal [facility] Comment on above: Order Comment: ADD O N AST AND PSAD TO LABS DONE 11 04 24 Result Comment: Bord jrdanb=644-084 mg/dL Higher Hkez=252 mg/dL or greater Performed By: #### L 501.0900, L500.4100, L501.9520, L501.9940, L500.2500, L501.4405, L501.4100, L501.9310 #### [facility] [address] [place], [address] Cholesterol in VLDL [Mass/Vol] 13 mg/dL Normal 5-40 [facility] Comment on above: Order Comment: ADD O N AST AND PSAD TO LABS DONE 11 04 24 Performed By: #### L 501.0900, L500.4100, L501.9520, L501.9940, L500.2500, L501.4405, L501.4100, L501.9310 #### [facility] [address] [place], [address] Triglyceride [Mass/Vol] 66 mg/dL Normal [facility] Comment on above: Order Comment: ADD O N AST AND PSAD TO LABS DONE 11 04 24 Result Comment: The drugs N-Acetylcysteine and Metamizole may falsely depress this assay. Normal range: <150 mg/dL Borderline High: 150-199 mg/dL High: 200-499 mg/dL Very High: >500 mg/dL Performed By: #### L 501.0900, L500.4100, L501.9520, L501.9940, L500.2500, L501.4405, L501.4100, L501.9310 #### [facility] [address] [place], [address] PSA,Total- Diagnosticon 10-09 PSA, DIAGNOSTIC 0.40 ng/mL Normal 0.00-4.00 [facility] Comment on above: Order Comment: ADD O N AST AND PSAD TO LABS DONE 11 04 24 Result Comment: This test was performed using the [employer] tPSA method. Measured values of a patient??sample can vary depending on the testing procedure used. PSA values determined on patient samples by different testing procedures cannot be used interchangeably. If there is a change in PSA assays while monitoring therapy, sequential testing should be performed to confirm baseline values. Performed By: #### L 501.0900, L500.4100, L501.9520, L501.9940, L500.2500, L501.4405, L501.4100, L501.9310 #### [facility] [address] [place], [address] Protein+Creatinine Ratio,Uri neon 11-04-2024 PROT:CRE RATIO Normal 0-200 [facility] Comment on above: Result Comment: PT T O RETURN TO OFFICE FOR THIS PER PT Performed By: #### L 501.0900, L500.4100, L501.9520, L501.9940, L500.2500, L501.4405, L501.4100, L501.9310 #### [facility] [address] [place], [address] PROTEIN,UR.RAN. Normal 0.0-12.0 [facility] Comment on above: Result Comment: PT T O RETURN TO OFFICE FOR THIS PER PT Performed By: #### L 501.0900, L500.4100, L501.9520, L501.9940, L500.2500, L501.4405, L501.4100, L501.9310 #### [facility] [address] [place], [address] UR CREAT Normal 39-259 [facility] Comment on above: Result Comment: PT T O RETURN TO OFFICE FOR THIS PER PT Performed By: #### L 501.0900, L500.4100, L501.9520, L501.9940, L500.2500, L501.4405, L501.4100, L501.9310 #### [facility] [address] [place] [place], [address] Screening total cholesterol/ high density lipoprotein (HDL) cholesterol ratioOrdered By: Jelena Patiño on 11-04-2024 Cholesterol.total/Chol esterol in HDL [Mass ratio] 2.68 {ratio} [facility] Serum creatinine measurement (mass/volume)Ordered By: Jelena Patiño on 11-04-2024 Creatinine [Mass/Vol] 0.85 mg/dL 0.70-1.20 [facility] Serum glucose measurement (m ass/volume)Ordered By: Jelena Patiño on 11-04-2024 Glucose [Mass/Vol] 81 mg/dL 70-99 [facility] Serum or plasma alanine knapp otransferase (ALT) measurementOrdered By: Jelena Patiño on 11-04-2024 ALT [Catalytic activity/Vol] 26 U/L <47 [facility] Serum or plasma anion gap de termination (moles/volume)Ordered By: Jelena Patiño on 11-04-2024 Anion gap [Moles/Vol] 10 mmol/L 5-15 [facility] Serum or plasma calcium casey urement (mass/volume)Ordered By: Jelena Patñio on 11-04-2024 Calcium [Mass/Vol] 9.3 mg/dL 7.6-11.0 [facility] Serum or plasma cholesterol in HDL measurement (mass/volume)Ordered By: Jelena Patiño on 11-04-2024 Cholesterol in HDL [Mass/Vol] 63 mg/dL >40 [facility] Comment on above: National Cholesterol Education Program (NCEP) guidelines:<40 mg/dL: Low HDL-cholesterol (major risk factor for CHD)>= 60 mg/dL: High HDL-cholesterol (negative risk factor for CHD)HDL-cholesterol is affected by a number of factors, e.g. smoking, exercise, hormones, sex and age. Serum or plasma cholesterol measurement (mass/volume)Ordered By: Jelena Patiño on 11-04-2024 Cholesterol [Mass/Vol] 168 mg/dL <201 [facility] Comment on above: Cholesterol level, D esirable <200 mg/dLBorderline high cholesterol 200-239 mg/dLHigh cholesterol >=240 mg/dLRecommendations of the NCEP Adult Treatment Panel for the following risk-cutoff thresholds for the [place] population. Serum or plasma potassium me asurementOrdered By: Jelena Patiño on 11-04-2024 Potassium [Moles/Vol] 3.9 mmol/L 3.3-5.1 [facility] Serum or plasma sodium measu rement (moles/volume)Ordered By: Jelena Patiño on 11-04-2024 Sodium [Moles/Vol] 136 mmol/L 133-145 [facility] Serum or plasma urea nitroge n measurement (mass/volume)Ordered By: Jelena Patiño on 11-04-2024 Urea nitrogen [Mass/Vol] 20 mg/dL High 4-19 [facility] T4 Total, Thyroxinon 025 T4 [Mass/Vol] 7.7 ug/dL Normal 4.5-12.1 [facility] Comment on above: Performed By: #### L 501.0900, L500.4100, L501.9520, L501.9940, L500.2500, L501.4405, L501.4100, L501.9310 #### [facility] [address] [place], [place], [id number] TSH DL <= 0.005 mIU/L QnOrde red By: Jelena Patiño on 11-04-2024 Thyroid Stimulating Hormone (TSH) 16.800 uIU/mL High 0.300-4.200 [facility] Thyroid Stim Hormone (TSH)on 11-04-2024 TSH 16.800 uIU/mL High 0.300-4.200 [facility] Comment on above: Performed By: #### L 501.0900, L500.4100, L501.9520, L501.9940, L500.2500, L501.4405, L501.4100, L501.9310 #### [facility] [address] [place], [address] ThyroxineOrdered By: Jelena brooks on 11-04-2024 T4 [Mass/Vol] 7.7 ug/dL 4.5-12.1 [facility] Triglycerides measurementOrd ered By: Jelena Patiño on 11-04-2024 Triglyceride [Mass/Vol] 66 mg/dL <199 [facility] Comment on above: The drugs N-Acetylcy steine and Metamizole may falsely depress this assay. Normal range: <150 mg/dLBorderline High: 150-199 mg/dLHigh: 200-499 mg/dLVery High: >500 mg/dL Thin prep Papanicolaou smear with manual screeningOrdered By: Jelena Patiño on 11-18-2023 Protein (U) [Mass/Vol] 8.9 mg/dL 0.0-11.8 [facility] Urine creatinine measurement (mass/volume)Ordered By: Jelena Patiño on 11-18-2023 Creatinine (U) [Mass/Vol] 47.90 mg/dL NO RANGE EST. [facility] Urine protein/creatinine mas s ratioOrdered By: Jelena Patiño on 11-18-2023 Protein/Creatinine (U) [Mass ratio] 186 mg/g CRE 0-200 [facility] Basophil percentageOrdered B y: Jelena Patiño on 11-17-2023 Chloride [Moles/Vol] 105 mmol/L 98-107 [facility] Cholesterol [Mass/Vol] 190 mg/dL <200 [facility] Comment on above: <200 mg/dL Desirable 200-240 mg/dL Borderline >240 mg/dL High Risk Glucose [Mass/Vol] 83 mg/dL 74-106 [facility] Potassium [Moles/Vol] 3.8 mmol/L 3.5-5.1 [facility] Sodium [Moles/Vol] 137 mmol/L 136-145 [facility] Triglyceride [Mass/Vol] 49 mg/dL <199 [facility] Comment on above: The drugs N-Acetylcy steine and Metamizole may falsely depress this assay.Serum Triglycerides Reference Interval Normal <150 mg/dL Borderline high 150 - 199 mg/dL High 200 - 499 mg/dL Very High > or = 500 mg/dL Laboratory - Chemistry and C hemistry - challengeOrdered By: Jelena Patiño on 11-17-2023 ALT [Catalytic activity/Vol] 43 U/L 16-61 [facility] Cholesterol in HDL [Mass/Vol] 71 mg/dL >40 [facility] Comment on above: The drugs N-Acetylcy steine and Metamizole may falsely depress this assay. Reference Range HDL <40 mg/dL Low HDL Cholesterol HDL >or= 60 mg/dL High HDL Cholesterol Cholesterol in LDL [Mass/Vol] 109 mg/dL 0-130 [facility] CO2 [Moles/Vol] 25.0 mmol/L 21.0-32.0 [facility] Urea nitrogen/Creatinine [Mass ratio] 9.8 mg/mg 10-20 [facility] No Panel InformationOrdered By: Jelena Patiño on 11-17-2023 Estimated GFR (MDRD) Amer 105 mL/min >60 [facility] Comment on above: GFR Calc Estimated GFR (MDRD) Non-Af Amer 87 mL/min >60 [facility] Comment on above: Non- GFR Calc VLDL Cholesterol 10 mg/dL 5-40 [facility] Serum or plasma calcium casey urement (mass/volume)Ordered By: Jelena Patiño on 11-17-2023 Calcium [Mass/Vol] 9.0 mg/dL 8.5-10.1 [facility] Serum or plasma creatinine m easurement (mass/volume)Ordered By: Jelena Patiño on 11-17-2023 Creatinine [Mass/Vol] 0.92 mg/dL 0.70-1.30 [facility] Comment on above: The validity of the calculated GFR & GFRAA in patients over 70 years has not been determined. Clinical correlation is essential. Serum or plasma thyroid stim ulating hormone (TSH) measurement (units/volume)Ordered By: Jelena Patiño on 11-17-2023 TSH Qn 5.19 uIU/mL 0.358-3.74 [facility] Serum or plasma thyroxine (T 4) measurement (mass/volume)Ordered By: Jelena Patiño on 11-17-2023 T4 [Mass/Vol] 11.8 ug/dL 4.5-12.1 [facility] Serum or plasma urea nitroge n measurement (mass/volume)Ordered By: Jelena Patiño on 11-17-2023 Urea nitrogen [Mass/Vol] 9 mg/dL 7-18 [facility] Thin prep Papanicolaou smear with manual screeningOrdered By: Jelena Patiño on 11-17-2023 Thin prep Papanicolaou smear with manual screening 73 U/L 15-37 [facility] Thin prep Papanicolaou smear with manual screening 7 5-15 [facility] Basophil percentageon 2021 Chloride [Moles/Vol] 103 mmol/L 98-107 [facility] Work Phone: Glucose [Mass/Vol] 97 mg/dL 74-106 [facility] Work Phone: Potassium [Moles/Vol] 4.5 mmol/L 3.5-5.1 [facility] Work Phone: Sodium [Moles/Vol] 137 mmol/L 136-145 [facility] Work Phone: Testosterone [Mass/Vol] 386.01 ng/dL [facility] Work Phone: Comment on above: CENTRAL 90% REFERENC E RANGES MALE AGE <50 197.44 - 669.58 ng/dL MALE AGE > or = 50 187.72 - 684.19 ng/dL FEMALE AGE <50 8.38 - 35.01 ng/dL FEMALE AGE > or = 50 <7.00 - 35.92 ng/dL Effective as of 04/02/21 Laboratory - Chemistry and C hemistry - challengeon 05-16-2022 CO2 [Moles/Vol] 27.0 mmol/L 21.0-32.0 [facility] Work Phone: Urea nitrogen/Creatinine [Mass ratio] 18.4 mg/mg 10-20 [facility] Work Phone: No Panel Informationon 05-16 Estimated GFR (MDRD) Amer 97 mL/min >60 [facility] Work Phone: Comment on above: GFR Calc Estimated GFR (MDRD) Non-Af Amer 80 mL/min >60 [facility] Work Phone: Comment on above: Non- GFR Calc Serum or plasma calcium casey urement (mass/volume)on 05-16-2022 Calcium [Mass/Vol] 9.1 mg/dL 8.5-10.1 [facility] Work Phone: Serum or plasma creatinine m easurement (mass/volume)on 05-16-2022 Creatinine [Mass/Vol] 0.98 mg/dL 0.70-1.30 [facility] Work Phone: Comment on above: The validity of the calculated GFR & GFRAA in patients over 70 years has not been determined. Clinical correlation is essential. Serum or plasma urea nitroge n measurement (mass/volume)on 05-16-2022 Urea nitrogen [Mass/Vol] 18 mg/dL 7-18 [facility] Work Phone: Thin prep Papanicolaou smear with manual screeningon 05-16-2022 Thin prep Papanicolaou smear with manual screening 7 5-15 [facility] Work Phone: Basophil percentageon 2021 Chloride [Moles/Vol] 104 mmol/L 98-107 [facility] Work Phone: Cholesterol [Mass/Vol] 209 mg/dL <200 [facility] Work Phone: Comment on above: <200 mg/dL Desirable 200-240 mg/dL Borderline >240 mg/dL High Risk Glucose [Mass/Vol] 127 mg/dL 74-106 [facility] Work Phone: Comment on above: Fasting Glucose resu lt greater than or equal to 126 mg/dL suggests DIABETES MELLITUS per A.D.A. criteria. Potassium [Moles/Vol] 4.0 mmol/L 3.5-5.1 [facility] Work Phone: Sodium [Moles/Vol] 137 mmol/L 136-145 [facility] Work Phone: Triglyceride [Mass/Vol] 232 mg/dL <199 [facility] Work Phone: Comment on above: The drugs N-Acetylcy steine and Metamizole may falsely depress this assay.Serum Triglycerides Reference Interval Normal <150 mg/dL Borderline high 150 - 199 mg/dL High 200 - 499 mg/dL Very High > or = 500 mg/dL Laboratory - Chemistry and C hemistry - challengeon 02-10-2022 CO2 [Moles/Vol] 25.0 mmol/L 21.0-32.0 [facility] Work Phone: T4 [Mass/Vol] 11.4 ug/dL 4.5-12.1 [facility] Work Phone: Urea nitrogen/Creatinine [Mass ratio] 14.2 mg/mg 10-20 [facility] Work Phone: No Panel Informationon 02-10 Estimated GFR (MDRD) Amer 68 mL/min >60 [facility] Work Phone: Comment on above: GFR Calc Estimated GFR (MDRD) Non-Af Amer 56 mL/min >60 [facility] Work Phone: Comment on above: Non- GFR Calc Thyroid Stimulating Hormone (TSH) 4.63 uIU/mL 0.358-3.74 [facility] Work Phone: Serum or plasma calcium casey urement (mass/volume)on 02-10-2022 Calcium [Mass/Vol] 9.5 mg/dL 8.5-10.1 [facility] Work Phone: Serum or plasma cholesterol in HDL measurement (mass/volume)on 02-10-2022 Cholesterol in HDL [Mass/Vol] 44 mg/dL >40 [facility] Work Phone: Comment on above: The drugs N-Acetylcy steine and Metamizole may falsely depress this assay. Reference Range HDL <40 mg/dL Low HDL Cholesterol HDL >or= 60 mg/dL High HDL Cholesterol Serum or plasma cholesterol in VLDL measurement (mass/volume)on 02-10-2022 Cholesterol in VLDL [Mass/Vol] 46 mg/dL 5-40 [facility] Work Phone: Serum or plasma creatinine m easurement (mass/volume)on 02-10-2022 Creatinine [Mass/Vol] 1.34 mg/dL 0.70-1.30 [facility] Work Phone: Comment on above: The validity of the calculated GFR & GFRAA in patients over 70 years has not been determined. Clinical correlation is essential. Serum or plasma low density lipoprotein (LDL) cholesterol measurement (mass/volume)on 02-10-2022 Cholesterol in LDL [Mass/Vol] 119 mg/dL 0-130 [facility] Work Phone: Serum or plasma urea nitroge n measurement (mass/volume)on 02-10-2022 Urea nitrogen [Mass/Vol] 19 mg/dL 7-18 [facility] Work Phone: Thin prep Papanicolaou smear with manual screeningon 02-10-2022 Thin prep Papanicolaou smear with manual screening 8 5-15 [facility] Work Phone: Clinical Summary: Raheel johns 12-11-2021 MC25 OP Hand Invalid Interpretation Code [facility] Work Phone: CNOVon 10-16-2020 [facility] Office Visit (ORTHTW) ---- JULIA FRANK ([id number]) 1950 M Date Time Provider Department 10/16/20 10:15 AM RAHEEM KAPLAN During your visit today, we recorded the following information about you: Raheem Kaplan MD 10/16/2020 11:13 AM Signed New patient referred Self for left hand concerns. HPI: Mr. Frank is a R hand dominant 69 year old male who is active with a chief complaint of left index finger pain and deformity. The symptoms have been going on for several years, has a remote history of fracture. Evaluation to date has included none. Treatment to date has included none. The symptoms are improved by rest and exacerbated by activity. The current symptoms are rated a 6/10 and interfere with ADLs and playing guitar. No past medical history on file. Current Outpatient Medications Medication Sig Dispense Refill - diphenhydramine HCl (ALLERGY ORAL) Take by mouth. - BABY ASPIRIN ORAL Take by mouth once daily. - cholecalciferol, vitamin D3, (VITAMIN D3 ORAL) Take by mouth. - DULoxetine (CYMBALTA) 60 mg capsule Take 60 mg by mouth once daily. - benazepril (LOTENSIN) 10 mg tablet Take 10 mg by mouth once daily. - levothyroxine 200 mcg cap Take 200 mcg by mouth once daily. No current facility-administer ed medications for this visit. ALLERGIES No Known Allergies All medical history, medications and allergies have been discussed with the patient today. ROS: REVIEW OF SYMPTOMS: Constitutional: patient denies any recent fever or significant change in weight Gastrointestinal: patient denies any current abdominal discomfort Musculoskeletal: as noted in the HPI Neurologic: as noted in the HPI SOCIAL HISTORY: Tobacco Use: Types: Cigarettes, Snuff Physical Examination: Mr.. Frank is a healthy appearing male in no acute distress. Bilateral upper limbs have equal and intact peripheral pulses. Skin does not demonstrate any rashes or lesions. Shoulders and elbows have pain free range of motion. Negative carpal tunnel compression testing and Phalen testing on the left. Intact sensation to light touch in the radial 3 digits. No open wound L hand. Moderate tenderness to palpation over DIP and PIP joints. Partially correctable deformity DIP and PIP joints index finger. Lacking approx 10 deg of flexion at DIP and PIP joints of index finger. X-Ray: Radiographs of the left hand reviewed demonstrating advanced degenerative changes of the DIP and PIP joints of the index finger without fracture or dislocation. 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 Frank the diagnosis and different treatment options. Patient elects for cortisone injection of his left index PIP joint. He was also instructed to try topical Voltaren gel. Follow-up here in 3 to 4 months as needed. Chepe Soto DO October 16, 2020 10:49 AM Attending Note: I have seen and examined Mr.. Frank and discussed the patient management with the resident/fellow. The resident's/fellow's progress note has been reviewed, edited, and signed. I was present for any and all procedures performed at this visit. Small Joint Arthro/Inj: L index PIP The risks, benefits and alternatives of the procedure were reviewed with the patient/surrogate, who agreed to proceed. Sign In Communication: Completed Time Out: Time Out completed The "Time-Out" verifies the correct patient, procedure, side/site, position (if applicable) and completion and review of fire risk assessment/protocol s (if appropriate): Affirmation of Time Out: Yes Signout Discussion: yes 10/16/2020 11:12 AM The procedure site was prepped in the usual sterile fashion. Allergies were reviewed Medications: 3 mg betamethasone acetate-betamethaso ne sodium phosphate 6 mg/mL Anesthetics: 0.5 mL lidocaine (PF) 10 mg/mL (1 %) Outcome: tolerated well, no immediate complications Post-injection instructions were reviewed with the patient and the patient voiced understanding of these instructions. Raheem Kaplan MD October 16, 2020 11:12 AM Referring Provider: SELF [200] Allergies As of Date: 10/16/2020 (No Known Allergies) Date Reviewed: 10/16/2020 Reviewed by: Raheem Kaplan - Fully Assessed Reason for Visit: Finger Pain [1583] Cmt: left index Primary Visit Diagnosis:Degenerat tomás arthritis of index finger of left hand [M19.042] Order(s):Small Joint Arthro/Inj: L index PIP [TYN535] Order #: [id number] [] lidocaine (PF) 10 mg/mL (1 %) 0.5 mL injection (XYLOCAINE)Disp: Rfl: [] betamethasone acetate-betamethaso ne sodium phosphate 3 mg injection (CELESTONE)Disp: Rfl: Prescriptions as of 10/16/2020 Sig: ALLERGY ORAL Take by mouth. BABY ASPIRIN ORAL Take by mouth once daily. VITAMIN D3 ORAL Take by mouth. DULOXETINE 60 MG CAPSULE,KEMAL* Take 60 mg by mouth once rayshawn* BENAZEPRIL (more content not included)... Normal [facility] XR DIGIT 3V FRONTAL/LAT/OBL LTon 10-16-2020 XR DIGIT 3V FRONTAL/LAT/OBL LT * * *Final Report* * * DATE OF EXAM: Oct 16 2020 10:05AM TWX [id number] - XR DIGIT 3V FRONTAL/LAT/OBL LT / PROCEDURE REASON: Pain * * * * Physician Interpretation * * * * HISTORY: Pain . LEFT INDEX FINGER PAIN TECHNIQUE: XR DIGIT 3V FRONTAL/LAT/OBL LT Laterality: LEFT Number of different views (projections): 3 COMPARISON: None available. RESULT: There is no acute fracture or dislocation. There are degenerative changes at the first CMC, first through third MCP and second digit PIP and DIP joints. There is no soft tissue swelling. No other significant abnormality. ------- IMPRESSION: Degenerative changes. Gunner'S Mate: KORY Transcribe Date/Time: Oct 16 2020 11:13A Dictated by : UTE SHARMA MD This examination was interpreted and the report reviewed and electronically signed by: UTE SHARMA MD on Oct 16 2020 11:13AM EST [id number] Normal [facility] XR DIGIT GENERAL 3V FRONTAL/ LAT/OBL LTon 10-16-2020 [facility] Office Visit: Spine Visiton 06-02-2017 Documentation of current medications (procedure) Done Invalid Interpretation Code [facility] Work Phone: Protein mass conc Done Invalid Interpretation Code [facility] Work Phone: Tobacco smoking status NHIS Former smoker Invalid Interpretation Code [facility] Work Phone: Tobacco use [facility] Former smoker Invalid Interpretation Code [facility] Work Phone: Office Visiton 07-26-2013 Documentation of current medications (procedure) Done Invalid Interpretation Code [facility] Work Phone: Protein mass conc Done [facility] Work Phone: Lab Report: BMPon 07-14-2013 Calcium 8.6 mg/dL Normal 8.5-10.1 [facility] Work Phone: Chloride 103 mmol/L Normal 98-107 [facility] Work Phone: CO2 9 mmol/L Normal 5-15 [facility] Work Phone: Creatinine 1.0 mg/dL Normal 0.8-1.3 [facility] Work Phone: Glucose 86 mg/dL Normal 70-110 [facility] Work Phone: Glucose mass conc 86 mg/dL Normal 70-110 [facility] Work Phone: Potassium 4.0 mmol/L Normal 3.5-5.1 [facility] Work Phone: Sodium 139 mmol/L Normal 136-145 [facility] Work Phone: Urea nitrogen 17 mg/dL Normal 7-18 [facility] Work Phone: Lab Report: CBCDon 3 Erythrocytes (RBC) 4.22 10*6/uL Low 4.6-6.2 [facility] Work Phone: Hematocrit (HCT) 38.7 % Low 40-54 [facility] Work Phone: Hematocrit Volume Fraction (Bld) 38.7 % Low 40-54 [facility] Work Phone: Hemoglobin (HGB) 12.9 g/dL Low 13.0-16.5 [facility] Work Phone: Platelets 213 10*3/mm3 Normal 150-450 [facility] Work Phone: Platelets #/vol (Bld) 213 10*3/mm3 Normal 150-450 [facility] Work Phone: RBC #/vol (Bld) 4.22 10*6/uL Low 4.6-6.2 [facility] Work Phone: WBC #/vol (Bld) 5.3 10*3/uL Normal 4.4-11.0 [facility] Work Phone: WBC (Leukocytes) 5.3 10*3/uL Normal 4.4-11.0 [facility] Work Phone: Clinical Lists Update: Prelo wire taper 07-12-2013 Tobacco smoking status NHIS former smoker [facility] Work Phone: Tobacco use [facility] former smoker Invalid Interpretation Code [facility] Work Phone: Vital Signs Date Time Vital Sign Value Performing Clinician Facility 06-02-2017 09:57-0400 BMI (Body Mass Index) 33.04 [facility] Work Phone: 06-02-2017 09:57-0400 Weight 102.97 kg [facility] Work Phone: 07-26-2013 09:33-0500 BMI (Body Mass Index) 35.53 kg/m2 [facility] Work Phone: 07-26-2013 09:33-0500 Body Temperature 96.7 [degF] [facility] Work Phone: 07-26-2013 09:33-0500 BP Diastolic 87 mm[Hg] Dk [facility] Work Phone: 07-26-2013 09:33-0500 BP Systolic 134 mm[Hg] Dk [facility] Work Phone: 07-26-2013 09:33-0500 BSA (Body Surface Area) 2.[address] [facility] Work Phone: 07-26-2013 09:33-0500 Pulse (Heart Rate) 63 /min Dk [facility] Work Phone: 07-26-2013 09:33-0500 Respiratory Rate 14 /min Dk aMhoney [facility] Work Phone: 07-26-2013 09:33-0500 Weight 110.32 kg Dk Mahoney [facility] Work Phone: 07-12-2013 13:56-0500 Height 176.53 cm Dk Mahoney [facility] Work Phone: NEGATED: Highlighted [id number] 14:14-0400 Body height 180.34 cm Leroy Acuna AT [facility] Work Phone: NEGATED: Highlighted [id number] 14:14-0400 Body height 180 cm Leroy Acuna AT [facility] Work Phone: NEGATED: Highlighted [id number] 14:14-0400 Body mass index (BMI) [Ratio] 36.95 kg/m2 Leroy Acuna AT [facility] Work Phone: NEGATED: Highlighted [id number] 14:14-0400 Body weight 119.75 kg Leroy Acuna AT [facility] Work Phone: NEGATED: Highlighted [id number] 14:14-0400 Body weight 120 kg Leroy Acuna AT [facility] Work Phone: Encounters Encounter Date Encounter Type Care Provider Facility Start: 06-28-2025 ambulatory Rocky Mclaughlin INVENTORY SPECIALIST MANAGER Facil ity:[facility] Start: 06-07-2025 End: 06-07-[address] Jelena Patiño MD Work Phone: -[facility] Start: 06-07-2025 End: 06-07-[address] Karri Perla MD -Laboratory [facility] Start: 06-07-2025 End: 06-07-2025 ambulatory Karri Perla Facility:[facility] Start: 04-17-2025 End: 04-17-[address] Jelena Patiño MD Work Phone: -Laboratory [facility] Start: 04-17-2025 End: 04-17-[address] Danish Cade MD -Laboratory [facility] Start: 04-17-2025 End: 04-17-2025 ambulatory Danish Cade Facility:[facility] Start: 11-04-2024 End: 11-04-[address] Jelena Patiño MD Work Phone: [facility] Work Phone: Start: 11-04-2024 End: 11-04-[address] Jelena Patiño MD -[facility] Work Phone: Start: 11-04-2024 End: 11-04-2024 ambulatory Jelena Patiño Facility:[facility] Start: 11-17-2023 End: 11-17-2023 ambulatory [facility] Work Phone: Start: 11-17-2023 End: 11-17-2023 Patient encounter procedure [facility] Start: 11-06-2022 End: 11-06-2022 ambulatory [facility] Work Phone: Start: 11-06-2022 End: 11-06-2022 [facility] Start: 05-16-2022 End: 05-16-2022 Patient encounter procedure [facility] Start: 02-10-2022 End: 02-10-2022 Patient encounter procedure [facility] Start: 01-20-2022 Registered Recurring [facility]ational [facility] Start: 10-16-2020 End: 10-16-2020 Subsequent hospital visit by physician [facility] Comment on above: Pain [R52] Start: 09-06-2020 End: 09-06-2020 Orders Only Raheem Kaplan Work Phone: [facility] [place] Comment on above: Pain (Primary Dx) Procedures Date Procedure Procedure Detail Performing Clinician Start: 11-06-2022 Plain chest X-ray Start: 12-11-2021 End: 12-16-2021 BP scrn no perf at interval Doreen Sotor PA-C Work Phone: Start: 12-11-2021 End: 12-16-2021 Calc BMI abv up jani f/u Doreen Sotor PA-C Work Phone: Start: 12-11-2021 End: 12-16-2021 Current tobacco non-user cad cap copd pv dm Doreen Garcíaucar PA-C Work Phone: Start: 12-11-2021 End: 12-16-2021 Docrev cur meds by kell Garcíaucar PA-[employer] Work Phone: Start: 12-11-2021 End: 12-16-2021 Osteoarthritis symptoms&funcjal status asses Doreen Garcíaucar PA-C Work Phone: Start: 12-11-2021 End: 12-16-2021 Pain neg no plan Doreen Sotor PA-C Work Phone: Start: 12-11-2021 End: 12-16-2021 Patient encounter procedure Doreen Sotor PA-C Work Phone: Start: 10-16-2020 Radex fingr minimum 2 views Raheem Kaplan MD Work Phone: Start: 07-18-2013 Rpr umbilical hernia age 6 yrs/> incarcerated Cesilia Faustin Work Phone: Start: 07-18-2013 Rpr umbil priscilla, bloc k > 5 yr Cesilia Faustin Work Phone: NEGATED: Highlighted rowStart: 12-11-2021 End: 12-11-2021 Documentation of current medications Leroy TODD Plan of Treatment Date Care Activity Detail Author Start: 05-08-2023 Influenza vaccination Influenza Vacc ine (#1) [facility] Start: 09-07-2022 Advance Directive Discussion Advance Directive Discussion [facility] Start: 09-07-2022 Depression Assessment Depression Ass essment [facility] Start: 01-01-2022 End: 01-01-2022 Patient encounter procedure Appointment [facility] Work Phone: Start: 06-17-2017 End: 06-17-2017 Physical Therapy General Physical Therapy [facility], [address] [place] [address], [id number] [facility] Work Phone: Start: 06-02-2017 End: 06-02-2017 Radex spine lumbosacral minimum 4 views X-Ray, Spine, Lumbosacral 4 views [facility] Work Phone: Start: 06-02-2017 End: 06-02-2017 Appointment [facility] Work Phone: Start: 06-02-2017 End: 06-02-2017 Radex spine lumbosacral minimum 4 views X-Ray, Spine, Lumbosacral 4 views [facility] Work Phone: Start: 11-27-2016 Pneumococcal Vaccine : 65+ (1 - PCV) Pneumococcal Vaccine: 65+ (1 - PCV) [facility] Start: 2011 RSV Vaccine (1 - 1-d ose 60+ series) RSV Vaccine (1 - 1-dose 60+ series) [facility] Start: 11-27-2001 Shingrix Vaccine (1 of 2) Shingrix Vaccine (1 of 2) [facility] Start: 11-27-1996 Cologuard (FIT-DNA) Cologuard (FIT-D NA) [facility] Start: 11-27-1996 Colonoscopy Colonoscopy [facility] Start: 11-27-1996 Colorectal Cancer Screening Colorectal Cancer Screening [facility] Start: 11-27-[address] Colonography [facility] Start: 11-27-1996 Diabetes Screening Diabetes Screenin g [facility] Start: 11-27-1996 Fecal Occult Blood Fecal Occult Bloo d [facility] Start: 11-27-1996 [facility] Start: 11-27-1986 Lipid 1996 panel - Serum or Plasma Lipid Screening [facility] Start: 11-27-1970 Urine microalbumin profile DTaP,Tdap,Td Vaccine (1 - Tdap) [facility] Start: 11-27-1969 Hepatitis C Screening Hepatitis C Sc sirisameera [facility] Start: 05-30-1951 Covid-19 Vaccine (#1) Covid-19 Vacci ne (#1) [facility] Start: 1950 Abdominal Aortic Aneurysm Screening Abdominal Aortic Aneurysm Screening [facility] End: 10-06-2021 Radex fingr minimum 2 views XR DIGIT GENERAL 3V FRONTAL/LAT/OBL LT Radiology Routine Pain 1 Occurrences starting 09/06/2020 until 10/06/2021 [facility] [facility] Comment on above: 1 Occurrences starti ng 09/06/2020 until 10/06/2021 [facility] Payers Date Payer Category Payer Self-pay [id number] 2022 [employer] ( and others) [id number] 2020 Unknown FOR LIFE [id number] 2020-Present Indemnity [id number] 2020 Unknown FOR LIFE [id number] 2020-Present [phone] [address] [place] [address] Indemnity [id number] 2011 Medicare [id number] 2011 Medicare MEDICARE MEDICAR E A AND B [id number] 2011-Present [phone] [address] [address] [place] [address] Medicare [id number] Unknown [id number] Unknown [id number] Unknown [id number] Unknown [id number] Social History Date Type Detail Facility [facility] Start: 1950 Sex Assigned At Not on file [facility] Start: 09-17-2021 End: 09-17-2021 Assertion Unknown if ever smoked [facility] Work Phone: Start: 1950 Sex Assigned At Male W [facility] Start: 10-16-2020 [facility] History of tobacco use Current smoker [facility] History of tobacco use Cigarette Smoker [facility] Start: 10-16-2020 Tobacco use and exposure Former smokeless tobacco user [facility] History of tobacco use Snuff User [facility] Start: 10-16-2020 History of Social function [facility] Start: 10-16-2020 Tobacco use panel [facility] National Score (1-100), lower number is lower risk Not on file [facility] Start: 09-16-2020 End: 10-16-2020 Exposure to SARS-CoV-2 (event) Not sure [facility] Start: 09-17-2021 [facility] tobacco (finding) [facility] Start: 11-17-2024 Sex Male (finding) [facility] Instructions 12-16-2021 Note Date & Type Note Facility 12-16-2021 Instructions CompletedPatient advised to follow-up with Primary Care Physician for BMI management. [facility] Work Phone: Progress note 10-16-2020 Note Date & Type Note Facility 10-16-2020 Note HNO ID: [id number] Author: Raheem Kaplan Service: ? Author Type: Physician Type: Progress Notes Filed: 10/16/2020 11:13 AM Note Text: New patient referred Self for left hand concerns. HPI: Mr. Frank is a R hand dominant 69 year old male who is active with a chief complaint of left index finger pain and deformity. The symptoms have been going on for several years, has a remote history of fracture. Evaluation to date has included none. Treatment to date has included none. The symptoms are improved by rest and exacerbated by activity. The current symptoms are rated a 6/10 and interfere with ADLs and playing guitar. No past medical history on file. Current Outpatient Medications Medication Sig Dispense Refill - diphenhydramine HCl (ALLERGY ORAL) Take by mouth. - BABY ASPIRIN ORAL Take by mouth once daily. - cholecalciferol, vitamin D3, (VITAMIN D3 ORAL) Take by mouth. - DULoxetine (CYMBALTA) 60 mg capsule Take 60 mg by mouth once daily. - benazepril (LOTENSIN) 10 mg tablet Take 10 mg by mouth once daily. - levothyroxine 200 mcg cap Take 200 mcg by mouth once daily. No current facility-administered medications for this visit. ALLERGIES No Known Allergies All medical history, medications and allergies have been discussed with the patient today. ROS: REVIEW OF SYMPTOMS: Constitutional: patient denies any recent fever or significant change in weight Gastrointestinal: patient denies any current abdominal discomfort Musculoskeletal: as noted in the HPI Neurologic: as noted in the HPI SOCIAL HISTORY: Tobacco Use: Types: Cigarettes, Snuff Physical Examination: Mr.. Frank is a healthy appearing male in no acute distress. Bilateral upper limbs have equal and intact peripheral pulses. Skin does not demonstrate any rashes or lesions. Shoulders and elbows have pain free range of motion. Negative carpal tunnel compression testing and Phalen testing on the left. Intact sensation to light touch in the radial 3 digits. No open wound L hand. Moderate tenderness to palpation over DIP and PIP joints. Partially correctable deformity DIP and PIP joints index finger. Lacking approx 10 deg of flexion at DIP and PIP joints of index finger. X-Ray: Radiographs of the left hand reviewed demonstrating advanced degenerative changes of the DIP and PIP joints of the index finger without fracture or dislocation. 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 Frank the diagnosis and different treatment options. Patient elects for cortisone injection of his left index PIP joint. He was also instructed to try topical Voltaren gel. Follow-up here in 3 to 4 months as needed. Chepe Soto DO October 16, 2020 10:49 AM Attending Note: I have seen and examined Mr.. Frank and discussed the patient management with the resident/fellow. The resident's/fellow's progress note has been reviewed, edited, and signed. I was present for any and all procedures performed at this visit. Small Joint Arthro/Inj: L index PIP The risks, benefits and alternatives of the procedure were reviewed with the patient/surrogate, who agreed to proceed. Sign In Communication: Completed Time Out: Time Out completed The "Time-Out" verifies the correct patient, procedure, side/site, position (if applicable) and completion and review of fire risk assessment/protocols (if appropriate): Affirmation of Time Out: Yes Signout Discussion: yes 10/16/2020 11:12 AM The procedure site was prepped in the usual sterile fashion. Allergies were reviewed Medications: 3 mg betamethasone acetate-betamethasone sodium phosphate 6 mg/mL Anesthetics: 0.5 mL lidocaine (PF) 10 mg/mL (1 %) Outcome: tolerated well, no immediate complications Post-injection instructions were reviewed with the patient and the patient voiced understanding of these instructions. Raheem Kaplan MD October 16, 2020 11:12 AM [facility] Progress note 10-16-2020 Note Date & Type Note Facility 10-16-2020 Note HNO ID: [id number] Author: Nate Stevenson (Rt) Service: ? Author Type: Reimbursement Representative Type: Progress Notes Filed: 10/16/2020 10:06 AM Note Text: Radiology Service Progress Note PATIENT NAME: Julia Frank DATE OF SERVICE: October 16, 2020 TIME: 10:06 AM PATIENT IDENTITY VERIFICATION COMPLETED USING TWO (2) IDENTIFIERS: Name and Date of confirmed by patient verbally. FALL SCREENING: Has the patient had 2 falls in the last year or 1 fall with injury or currently using an Ambulatory Assistive Device (Walker, Cane, Wheelchair, Crutches, etc.)? No PATIENT GENDER DATA: Male PATIENT RELEVANT IMPLANT DATA REVIEWED: Not Applicable RADIOLOGY DEPARTMENT: General X-ray: Exam(s) Completed: Upper Extremity X-Ray(s): Fingers/Thumb, left : INDEX PERIPHERAL IV DATA: Not applicable SIGNED BY: RT Elva October 16, 2020 10:06 AM [facility] History of Present illness Narrative 10-16-2020 Katy SagastumeRt)Nate - 10/16/2020 9:40 AM EST Note Date & Type Note Facility 10-16-2020 History of Presen t illness Narrative Radiology Service Progress Note PATIENT NAME: Julia Frank DATE OF SERVICE: October 16, 2020 TIME: 10:06 AM PATIENT IDENTITY VERIFICATION COMPLETED USING TWO (2) IDENTIFIERS: Name and Date of confirmed by patient verbally. FALL SCREENING: Has the patient had 2 falls in the last year or 1 fall with injury or currently using an Ambulatory Assistive Device (Walker, Cane, Wheelchair, Crutches, etc.)? No PATIENT GENDER DATA: Male PATIENT RELEVANT IMPLANT DATA REVIEWED: Not Applicable RADIOLOGY DEPARTMENT: General X-ray: Exam(s) Completed: Upper Extremity X-Ray(s): Fingers/Thumb, left : INDEX PERIPHERAL IV DATA: Not applicable SIGNED BY: RT Elva October 16, 2020 10:06 AM documented in this encounter [facility] Evaluation note Note Date & Type Note Facility Evaluation note There may be informa tion available, but it has not been provided by the sender. [facility] Work Phone: Evaluation note Note Date & Type Note Facility Evaluation note No assessment information availa sneha [facility] Work Phone: Evaluation note Note Date & Type Note Facility Evaluation note Diagnosis Pain Generalized pain documented in this encounter [facility] Reason for referral (narrative) Note Date & Type Note Facility Reason for referral (narrative) No reason for referral information available [facility] Work Phone: Assessments Diagnosis Pain- Primary Generalized pain Summary Purpose Family History No Family History Records FoundThere may be information available, but it has not been provided by the sender.No Family History Records Found Advance Directives No Advanced Directives Records Found Advance Directive Response Recorded Date/ Time Living Will No November 12, 2017 8:24am Power of Charge Rn No November 12 8 8:24am Advance Directive Response Recorded Date/ Time Living Will No November 12, 2017 7:24am Power of Charge Rn No November 12 8 7:24am Chief Complaint Chief Complaint Description Start Date left hand post LEFT ENDOSCOP IC CARPAL TUNNEL RELEASE;ENDOSCOPIC CUBITAL TUNNEL RELEASE;INDEX FINGER PROXIMAL INTERPHALANGEAL ARTHROPLASTY;BIOPSY on 11/21/2021 Preliminary chief co mplaint data, not yet signed by the author as of Chief Complaint and Reason for Visit Chief Complaint INDEX FINGER POST OP / PT BRING RX Chief Complaint Cough Additional Source Comments Source Comments (unrecognize d section and content) In the event this informatio n is protected by the Federal Confidentiality of Alcohol and Drug Abuse Patient Records regulations: The Federal rules restrict any use of the information to criminally investigate or prosecute any alcohol or drug abuse patient.[facility] the event this information is protected by the Federal Confidentiality of Alcohol and Drug Abuse Patient Records regulations: The Federal rules restrict any use of the information to criminally investigate or prosecute any alcohol or drug abuse patient.[facility] (unrecognized sect ion and content) No Status Records FoundNo Status Records Found INFORMATION SOURCE (unrecogn ized section and content) DATE CREATED AUTHOR 10/04/2021 [facility] DATE CREATED AUTHOR AUTHOR'S ORGANIZ ATION 06/19/2025 [facility] Reason for Visit (unrecogniz ed section and content) Reason For Visit Description Postop - subsequent visit Preliminary reason f or visit data, not yet signed by the author as of left hand post LEFT ENDOSCOP IC CARPAL TUNNEL RELEASE;ENDOSCOPIC CUBITAL TUNNEL RELEASE;INDEX FINGER PROXIMAL INTERPHALANGEAL ARTHROPLASTY;BIOPSY on 11/21/2021 Reason Comments Radio Gen RMP Specialty Diagnoses / Procedures Referred By Contac t Referred To Contact Radiology / RADIO GENERAL [facility] Diagnoses Pain, unspecified XR DIGIT GENERAL 3V FRONTAL/LAT/OBL LT Procedures X-RAY EXAM OF FINGER(S) XR KHUSHBOO GENERAL Raheem Kaplan MD [address] [place] [address] Radio General [facility] [address] [place] [address] Referral ID Status Reason Start Date Expiration Date V isits Requested Visits Authorized [id number] Denied Clearance Not Met - Admin/Chairm an/Director Advise to Postpone/Res chedule or Not Proceed 10/16/2020 01/14/2021 1 0 Goals (unrecognized section and content) Goals may be documented in a n alternate sectionGoals may be documented in an alternate sectionGoals may be documented in an alternate sectionGoals may be documented in an alternate sectionGoals may be documented in an alternate sectionGoals may be documented in an alternate sectionGoals may be documented in an alternate section Care Teams (unrecognized sec tion and content) Team Status: Active Member Role Status Dates Dr. Jelena Patiño MD Family Provider Active Dr. Jelena Patiño MD Primary Care Provider Active Team Status: Inactive Member Role Status Dates Dr. Jelena Patiño MD Primary Care Provider Active Lexie Linton DO Attending Provider, Referring Pr carlos Active School Jan[employer] Relationship Specialty Start Date End Date Mingo Perla) [facility] [address] [place] [address] PCP - General 06/28/02 Team Status: Inactive Member Role Status Dates Dr. Jelena Patiño MD Primary Care Provider, Attendin Provider Active Team Status: Inactive Member Role Status Dates Dr. Jelena Patiño MD Primary Care Provider Active Start: November 04, 2024 End: November 04, 2024 Dr. Jelena Patiño MD Attending Provider Active Start: November 04, 2024 End: November 04, 2024 Dr. Jelena Patiño MD Referring Provider Active Start: November 04, 2024 End: November 04, 2024 Team Status: Active Member Role/Relationship Status Dates Dr. Jelena Patiño MD Family Provider Active Dr. Jelena Patiño MD Primary Care Provider Active Team Status: Inactive Member Role/Relationship Status Dates Dr. Jelena Patiño MD Primary Care Provider Active Start: April 17, 2025 End: April 17, 2025 Dr. Danish Cade MD Attending Provider Active Start: April 17, 2025 End: April 17, 2025 Team Status: Active Member Role/Relationship Status Dates Dr. Jelena Patiño MD Primary care physician Active Team Status: Inactive Member Role/Relationship Status Dates Dr. Jelena Patiño MD Primary care physician Active Start: April 17, 2025 End: April 17, 2025 Dr. Danish Cade MD Attending physician Active Start: April 17, 2025 End: April 17, 2025 Team Status: Inactive Member Role/Relationship Status Dates Dr. Jelena Patiño MD Primary care physician Active Start: June 07, 2025 End: June 07, 2025 Dr. Karri Perla MD Attending physician Active S tart: June 07, 2025 End: June 07, 2025 FOR RECORDS PERTAINING TO PATIENTS WHO ARE OR HAVE BEEN ENROLLED IN A CHEMICAL DEPENDENCY/SUBSTANCEABUSE PROGRAM, SOME INFORMATION MAY BE OMITTED. This clinical summary was aggregated from multiple sources. Caution should be exercised in using it in the provision of clinical care. This summary normalizes information from multiple sources, and as a consequence, information in this document may materially change the coding, format and clinical context of patient data. In addition, data may be omitted in some cases. CLINICAL DECISIONS SHOULD BE BASED ON THE PRIMARY CLINICAL RECORDS. [facility] [employer] [facility]. provides no warranty or guarantee of the accuracy or completeness of information in this document.
== END | disposition home or self-care (01) ==
LOC: CT 18:03
PROVIDERS: PCP Family Medicine
DX: Z12.2 Encounter for screening for malignant neoplasm of respiratory organs (principal); F17.210 Nicotine dependence, cigarettes, uncomplicated
CPT/HCPCS: 71271

== ENCOUNTER → 2025-07-26 | Outpatient (CLI) | payer MEDICARE, OTHER, SELFPAY ==
--- NOTE | 2025-07-26 12:51 | ECHOD_ITS ---
Reason For Study : MURMUR Procedure This was a 2D Doppler, Color Flow transthoracic echocardiogram. Exam performed in department. Left Ventricle Normal LV size. Apical false tendon noted. The left ventricular ejection fraction is 55 %. Stage 1 diastolic dysfunction. No regional wall motion abnormalities noted. Right Ventricle Normal RV size. Normal systolic function. Atria Normal left atrium. Normal right atrium. Mitral Valve Normal mitral valve. Tricuspid Valve Normal tricuspid valve. Mild (1+) tricuspid valve insufficiency. Aortic Valve Trisinus/trileaflet aortic valve. Mild focal aortic valve calcification. Pulmonic Valve Normal pulmonic valve. Great Vessels Normal aortic root. The pulmonary artery is normal size. Inferior vena cava collapse with respiration. Pericardium/Pleural No pericardial effusion. MMode/2D Measurements & Calculations LVIDd: 5.7 cm IVSd: 0.92 cm LVOT diam: 2.6 cm LVIDs: 4.0 cm LVPWd: 1.0 cm LVOT area: 5.5 cm2 RVDd: 3.8 cm FS: 29.5 % Ao root diam: 4.2 cm asc Aorta Diam: 4.3 cm LAV(MOD- bp): 59.1 ml LAV(MOD- bp) Indexed: 28.8 ml/m2 LAV(MOD- sp2): 62.2 ml LAV(MOD- sp4): 54.8 ml SV(MOD- sp4): 64.4 ml LVAd ap4: 39.6 cm2 LVAd ap2: 41.8 cm2 LVLd ap4: 10.0 cm LVLd ap2: 9.8 cm SI(MOD- sp4): 31.4 ml/m2 EDV(MOD-sp4): 131.3 ml EDV(MOD-sp2): 149.1 ml EDV(sp4-el): 133.3 ml EDV(sp2-el): 152.0 ml LVAs ap4: 24.8 cm2 LVAs ap2: 24.7 cm2 LVLs ap4: 8.4 cm LVLs ap2: 8.3 cm ESV(MOD-sp4): 67.0 ml ESV(MOD-sp2): 67.5 ml ESV(sp4-el): 62.6 ml ESV(sp2-el): 62.3 ml EF(MOD-sp4): 49.0 % EF(MOD-sp2): 54.8 % EF(sp4-el): 53.0 % SV(MOD-sp2): 81.7 ml SV(sp4-el): 70.7 ml LA A4 area: 20.3 cm2 SI(MOD-sp2): 39.8 ml/m2 LA dimension(2D): 3.4 cm TAPSE: 1.6 cm RA A4 area: 20.0 cm2 Time Measurements MV dec time: 0.19 sec Doppler Measurements & Calculations MV E max edu: 38.2 cm/sec Lat Peak E' Edu: 9.6 cm/sec Med Peak E' Edu: 6.5 cm/sec MV A max edu: 74.5 cm/sec E/E' lat: 4.0 E/E' med: 5.9 MV E/A: 0.51 MV dec slope: 204.3 cm/sec2 Ao V2 max: 178.3 cm/sec LV V1 max: 67.8 cm/sec Ao max P.8 mmHg LV V1 max P.8 mmHg Ao V2 mean: 128.5 cm/sec LV V1 mean P.1 mmHg Ao mean P.5 mmHg LV V1 mean: 50.6 cm/sec Ao V2 VTI: 34.5 cm LV V1 VTI: 13.8 cm AV (velocity ratio): 0.40 MARBIN(I,D): 2.2 cm2 MARBIN(V,D): 2.1 cm2 SV(LVOT): 75.9 ml PA V2 max: 69.8 cm/sec TR max edu: 183.2 cm/sec TR max P.4 mmHg ECHO/Echo Complete Interpretation Summary Normal LV size. The left ventricular ejection fraction is 55 %. Apical false tendon noted. Stage 1 diastolic dysfunction. Mild focal aortic valve calcification. Ordering Physician: Danish Cade Referring Physician: Danish Cade Performed By: Cristhian Josue RDCS
--- NOTE | 2025-07-26 12:52 | US_ITS ---
PROCEDURE: THYROID 07/26/2025 REASON FOR EXAM: NODULE TECHNIQUE: Procedure Code: USTHY Modality: US Procedure: THYROID COMPARISON: No prior ultrasound. FINDINGS: Right thyroid lobe size: 3.5 x 2.1 x 1.1 cm Left thyroid lobe size: 3.7 x 1.3 x 0.9 cm Isthmus: 0.4 cm Background parenchymal echotexture is moderately heterogeneous Nodules: 1. Lobe: Left, Location: Mid to lower, Size: 0.5 x 0.6 x 0.4 cm, Stability: Not applicable Composition: Solid or almost completely solid (+2) Echogenicity: Hypoechoic (+2) Margin: Smooth (+0) Shape: Wider than tall (+0) Echogenic Foci: None (+0) TI-RADS: 4 US/Thyroid IMPRESSION: Heterogeneous thyroid gland. Nodule 1 TR 4. No FNA or thyroid ultrasound follow-up needed RECOMMENDATION: TR 1 benign (0 points): No fine-needle aspirate or ultrasound follow-up require d. TR 2 not suspicious (1-2 points): No fine-needle aspirate or ultrasound follow up required. TR 3 mildly suspicious (3 points): 1.5 centimeter or greater requires ultrasoun d follow up at 1, 3 and 5 years. 2.5 centimeters or greater requires fine-needle aspirate. TR 4: Moderately suspicious (4-6 points): 1 centimeter greater requires ultraso und follow-up in 1, 2, 3 and 5 years. 1.5 centimeters or greater requires fine-needle aspirate. TR 5 highly suspicious (greater than or equal to 7 points,): 0.5 centimeters or greater requires annual follow up up to 5 years. 1.0 centimeters or greater requires fine-needle aspirate. Fine-needle aspirate no more than 2 nodules. Biopsy up to two highest TI-RADS s cores. Follow-up no more than 4 nodules with highest TI-RADS points score. Based on most suspicious nodule. Nodule size = largest diameter Only evaluate nodule if =>5 mm. Growth > 20% in 2 dimensions = worsening. Reading Location: [place] [address]
--- OUTSIDE RECORDS SUMMARY | 2025-07-26 14:35 | XMS RPT_ITS | CCD ---
Author Organization [facility] Care Team Providers Care Technical Account Executive Name Role Phone Dk Mahoney Rigoberto Unavailable Unavailable Gianna Ruff N Unavailable Gianna Ruff Unavailable Gianna Ruff N Unavailable Gianna Ruff N Unavailable Jean Paul Perla) Primary Care Provider Damaris VELOZ, Doreen Patel Unavailable Jean Paul Perla) Primary Care Provider [phone] Dr. Jelena Patiño MD Primary Care Provider Dr. Jelena Patiño MD Attending Provider Dr. Jelena Patiño MD Referring Provider Dr. Jelena Patiño MD Primary Care Provider Dr. Kasie Key MD Attending Provider [phone] Dr. Jelena Patiño MD Primary Care Physician Dr. Kasie Key MD Attending Physician Dr. Karri Perla MD Attending Physician JEAN PAUL PERLA Primary Care Unavailable KASIE KEY Referring Unavailable Rocky Eddy Attending Unavailable Rocky Eddy Referring Unavailable Kasie Key Primary Care Unavailable Jelena Patiño Primary Care Unavailable Jelena Patiño Attending Unavailable Jelena Patiño Referring Unavailable Kasie Key Primary Care Unavailable Kasie Key Attending Unavailable Kasie Key Referring Unavailable Jelena Patiño Primary Care Unavailable Kasie Key Attending Unavailable Karri Perla Attending Unavailable Jelena Patiño Primary Care Unavailable Allergies Allergy Classification Reported Allergen(s) Allergy Type Date of Onset Reaction(s) Facility (1 source) Mold Extract; Translations: [MOLD] Drug Allergy 9 [facility] Work Phone: (1 source) peanut; Translations: [PEANUTS] food allergy 9 [facility] Work Phone: (1 source) POISON EULALIA; Translations: [POISON EULALIA] allergy to substance 9 [facility] Work Phone: (1 source) PLANT POLLENS drug allergy 9 [facility] Work Phone: Medications Current Medications Medication [...] TBEC 1 tablet once a day aspirin [id number] Arielle Michelle DAIRY HAND Start: 07-14-2013 take 1 tablet by rafiq th once daily take 1 tablet by rafiq th once daily ASPIRIN 81 MG TABS One tablet by mouth daily ASPIRIN [id number] Julia Vo take 1 tablet by rafiq th once daily ASPIRIN 81 MG TABS One tablet by mouth daily ASPIRIN 37511136540 Julia Arguetapp benazepril hydrochloride 10 mg oral tablet (13 sources) Angiotensin Converting Enzyme Inhibitor Start: 07-08-2019 LOTENSIN 10 MG TABS 1 tablet once a day benazepril [id number] Arielle Michelle DARRYN Start: 07-14-2013 take 10 mg by mouth once daily take 1 tablet by rafiq th once daily LOTENSIN 10 MG TABS One tablet by mouth daily BENAZEPRIL HCL [id number] Julia Vo DULoxetine 60 mg delayed release oral capsule (1 source) Serotonin and Norepinephrine Reuptake Inhibitor DULOXETINE HCL 60 MG CPEP 1 capsule once a day duloxetine 49117049830 Mindy Snyder RN finasteride 5 mg oral tablet (5 sources) 5-alpha Reductase Inhibitor FINASTERIDE 5 MG TAB S 1/4 tab daily FINASTERIDE 80793218509 Julia Vo 120 actuat formoterol fumarate 0.005 mg/actuat / mometasone furoate 0.1 mg/actuat metered dose inhaler (5 sources) Corticosteroid, beta2-Adrenergic Agonist Start: 06-01-2017 DULERA 100-5 MCG/ACT AERO MOMETASONE FURO-FORMOTEROL FUM [id number] Dk Mahoney Start: 06-01-2017 DULERA 100-5 M CG/ACT AERO MOMETASONE FURO- FORMOTEROL FUM [id number] Dk Mahoney MULTIPLE VITAMINS-MINERALS (1 source) Start: 07-08-2019 ONE DAILY MULT IVITAMIN ADULT TABS 1 tablet once a day MULTIPLE VITAMINS-MINERALS Arielle Michelle LPN pantoprazole 40 mg delayed release oral tablet (5 sources) Proton Pump Inhibitor Start: 06-01-2017 PANTOPRAZOLE SODIUM [address] [facility] PANTOPRAZOLE SODIUM 24204756348 Dk Mahoney levothyroxine sodium 0.175 mg oral tablet (13 sources) l-Thyroxine Start: 12-03-2021 LEVOTHYROXINE SODIUM 175 MCG TABS 1 tablet once a day levothyroxine 92571368868 Arielle Michelle LPN Start: 07-14-2013 take 1 tablet by rafiq th once daily take 1 tablet by rafiq th once daily SYNTHROID 200 MCG TABS One tablet by mouth daily LEVOTHYROXINE SODIUM 17283434666 Julia Vo Problems Active Problems Problem Classification Problem Date Documented Da te Episodic/Chronic Abdominal hernia (17 sources) Umbilical hernia; Translations: [Irreducible umbilical hernia] Resolved: 07-18-2013 07-27-2013 Episodic Essential hypertension (2 sources) Essential (primary) hypertension; Translations: [Essential hypertension, malignant] Onset: 11-17-2024 Chronic Heart valve disorders (1 source) Cardiac murmur, unspecified; Translations: [Cardiac murmur, unspecified] Onset: 07-12-2025 Episodic Immunizations and screening for infectious disease (7 sources) Patient encounter status; Translations: [Encounter for screening for COVID-19] 09-17-2021 Episodic Malaise and fatigue (1 source) Other fatigue; Translations: [Other fatigue] Onset: 07-03-2025 Episodic Osteoarthritis (1 source) Primary osteoarthritis, left [...] [Anesthesia of skin] Onset: 10-23-2021 10-23-2021 Episodic Other screening for suspected conditions (not mental disorders or infectious disease) (1 source) Encounter for screening for malignant neoplasm of respiratory organs; Translations: [Encounter for screening for malignant neoplasm of respiratory organs] Onset: 07-04-2025 Episodic Residual codes; unclassified (2 sources) Pain; Translations: [Pain, unspecified] 10-16-2020 Episodic Thyroid disorders (3 sources) Hypothyroidism, unspecified; Translations: [Nontoxic single thyroid nodule] Onset: 06-13-2025 Chronic Past or Other Problems Problem Classification Problem Date Documented Da te Episodic/Chronic Spondylosis; intervertebral disc disorders; other back problems (3 sources) Low back pain; Translations: [Low back pain] Onset: 06-02-2017 06-02-2017 Episodic Unclassified (1 source) Problem Results Test Name Value Interpretation Reference Range Facility 25(OH)D3 [facility] 2024 25-hydroxyvitamin D3 [Mass/Vol] 54.7 ng/mL Normal 31.0-80.0 [facility] Comment on above: Order Comment: Osman ortega Type: BLOOD SPECIMEN Ordering Facility: [facility] Address: [address] [place] [address] Result Comment: Clas sification of 25 [place] Vitamin D status: Deficiency/Insufficiency: < or = 30 ng/ml. Sufficiency/Optimal Levels: 31-80 ng/mL Toxicity: > 100 ng/mL. Test performed by chemiluminescent immunoassay. Performed By: #### 5 0190-8, 2276-4, 1988-11 #### [facility] CLIA [id number] [address] [place] [address] STATES OF [facility] CBC W Auto Differential pane l (Bld)on 07-03-2025 Basophils (Bld) [#/Vol] 10*3/uL Normal <0.11 [facility] Comment on above: Order Comment: Osman ortega Type: BLOOD SPECIMEN Ordering Facility: [facility] Address: [address] [place] [address] Performed By: #### 5 7021-8 #### [facility] CLIA [id number] [address] [place] [address] [place] Basophils/100 WBC (Bld) 0.3 % Normal [facility] Comment on above: Order Comment: Speci men Type: BLOOD SPECIMEN Ordering Facility: [facility] Address: [place] [address] Performed By: #### 5 7021-8 #### [facility] CLIA [id number] [address] [place] [address] [place] Differential cell count method Nom (Bld) Auto Normal [facility] Comment on above: Order Comment: Speci men Type: BLOOD SPECIMEN Ordering Facility: [facility] Address: [place] [address] Performed By: #### 5 7021-8 #### [facility] CLIA [id number] [address] [place] [address] [place] Eosinophils (Bld) [#/Vol] 0.17 10*3/uL Normal <0.46 [facility] Comment on above: Order Comment: Speci men Type: BLOOD SPECIMEN Ordering Facility: [facility] Address: [place] [address] Performed By: #### 5 7021-8 #### [facility] CLIA [id number] [address] [place] [address] [place] Eosinophils/100 WBC (Bld) 4.6 % Normal [facility] Comment on above: Order Comment: Speci men Type: BLOOD SPECIMEN Ordering Facility: [facility] Address: [place] [address] Performed By: #### 5 7021-8 #### [facility] CLIA [id number] [address] [place] [address] [place] Erythrocyte distribution width (RBC) [Ratio] 14.6 % Normal 11.5-15.0 [facility] Comment on above: Order Comment: Speci men Type: BLOOD SPECIMEN Ordering Facility: [facility] Address: [facility] [place] [address] Performed By: #### 5 7021-8 #### [facility] CLIA [id number] [address] [place] [address] [place] Hematocrit (Bld) [Volume fraction] 35.6 % Low 39.0-51.0 [facility] Comment on above: Order Comment: Speci men Type: BLOOD SPECIMEN Ordering Facility: [facility] Address: [facility] [place] [address] Performed By: #### 5 7021-8 #### [facility] [id number] [address] [place] [address] [place] Hemoglobin (Bld) [Mass/Vol] 12.4 g/dL Low 13.0-17.0 [facility] Comment on above: Order Comment: Speci men Type: BLOOD SPECIMEN Ordering Facility: [facility] [place] [address] Performed By: #### 5 7021-8 #### [facility] [id number] [address] [place] [address] [place] Immature granulocytes (Bld) [#/Vol] 10*3/uL Normal <0.10 [facility] Comment on above: Order Comment: Speci men Type: BLOOD SPECIMEN Ordering Facility: [facility] Address: [facility] [place] [address] Performed By: #### 5 7021-8 #### [facility] CLIA [id number] [address] [place] [address] [place] Immature granulocytes/100 WBC (Bld) 0.3 % Normal [facility] Comment on above: Order Comment: Speci men Type: BLOOD SPECIMEN Ordering Facility: [facility] Address: [facility] [place] [address] Performed By: #### 5 7021-8 #### [facility] CLIA [id number] [address] [place] [address] [place] Lymphocytes (Bld) [#/Vol] 0.98 10*3/uL Low 1.00-4.00 [facility] Comment on above: Order Comment: Speci men Type: BLOOD SPECIMEN Ordering Facility: [facility] Address[facility] [place] [address] Performed By: #### 5 7021-8 #### [facility] CLIA [id number] [address] [place] [address] [place] Lymphocytes/100 WBC (Bld) 26.7 % Normal [facility] Comment on above: Order Comment: Speci men Type: BLOOD SPECIMEN Ordering Facility: [facility] Address: [address] [place] [address] Performed By: #### 5 7021-8 #### [facility] [id number] [address] [place] [address] [place] MCH (RBC) [Entitic mass] 32.8 pg Normal 26.0-34.0 [facility] Comment on above: Order Comment: Speci men Type: BLOOD SPECIMEN Ordering Facility: [facility] Address: [facility] [place] [address] Performed By: #### 5 7021-8 #### [facility] CLIA [id number] [address] [place] [address] [place] MCHC (RBC) [Mass/Vol] 34.8 g/dL Normal 30.5-36.0 [facility] Comment on above: Order Comment: Speci men Type: BLOOD SPECIMEN Ordering Facility: [facility] Address: [facility] [place] [address] Performed By: #### 5 7021-8 #### [facility] CLIA [id number] [address] [place] [address] [place] MCV (RBC) [Entitic vol] 94.2 fL Normal 80.0-100.0 [facility] Comment on above: Order Comment: Speci men Type: BLOOD SPECIMEN Ordering Facility: [facility] Address: [place] [address] Performed By: #### 5 7021-8 #### [facility] CLIA [id number] [address] [place] [address] [place] Monocytes (Bld) [#/Vol] 0.40 10*3/uL Normal <0.87 [facility] Comment on above: Order Comment: Speci men Type: BLOOD SPECIMEN Ordering Facility: [facility] Address: [facility] [place] [address] Performed By: #### 5 7021-8 #### [facility] CLIA [id number] [address] [place] [address] [place] Monocytes/100 WBC (Bld) 10.9 % Normal [facility] Comment on above: Order Comment: Speci men Type: BLOOD SPECIMEN Ordering Facility: [facility] Address: [facility] [place] [address] Performed By: #### 5 7021-8 #### [facility] CLIA [id number] [address] [place] [address] [place] Neutrophils (Bld) [#/Vol] 2.10 10*3/uL Normal 1.45-7.50 [facility] Comment on above: Order Comment: Speci men Type: BLOOD SPECIMEN Ordering Facility: [facility] Address: [facility] [place] [address] Performed By: #### 5 7021-8 #### [facility] CLIA [id number] [address] [place] [address] [place] Neutrophils/100 WBC (Bld) 57.2 % Normal [facility] Comment on above: Order Comment: Speci men Type: BLOOD SPECIMEN Ordering Facility: [facility] Address: [facility] [place] [address] Performed By: #### 5 7021-8 #### [facility] CLIA [id number] [address] [place] [address] [place] Nucleated RBC (Bld) [#/Vol] 10*3/uL Normal <0.01 [facility] Comment on above: Order Comment: Speci men Type: BLOOD SPECIMEN Ordering Facility: [facility] Address: [facility] [place] [address] Performed By: #### 5 7021-8 #### [facility] [id number] [address] [place] [address] [place] Nucleated RBC/100 WBC (Bld) [Ratio] 0.0 /100 WBC Normal [facility] Comment on above: Order Comment: Speci men Type: BLOOD SPECIMEN Ordering Facility: [facility] Address: [facility] [place] [address] Performed By: #### 5 7021-8 #### [facility] [id number] [address] [place] [address] [place] Platelet mean volume (Bld) [Entitic vol] 8.8 fL Low 9.0-12.7 [facility] Comment on above: Order Comment: Speci men Type: BLOOD SPECIMEN Ordering Facility: [facility] Address: [facility] [place] [address] Performed By: #### 5 7021-8 #### [facility] [id number] [address] [place] [address] [place] Platelets (Bld) [#/Vol] 187 10*3/uL Normal 150-400 [facility] Comment on above: Order Comment: Speci men Type: BLOOD SPECIMEN Ordering Facility: [facility] Address: [address] [place] [address] Performed By: #### 5 7021-8 #### [facility] [id number] [address] [place] [address] [place] RBC (Bld) [#/Vol] 3.78 10*6/uL Low 4.20-6.00 [facility] Comment on above: Order Comment: Speci men Type: BLOOD SPECIMEN Ordering Facility: [facility] Address: [facility] [place] [address] Performed By: #### 5 7021-8 #### [facility] [id number] [address] [place] [address] [place] WBC (Bld) [#/Vol] 3.67 10*3/uL Low 3.70-11.00 [facility] Comment on above: Order Comment: Speci men Type: BLOOD SPECIMEN Ordering Facility: [facility] Address: [facility] [place] [address] Performed By: #### 5 7021-8 #### [facility] [id number] [address] [place] [address] [place] Comprehensive metabolic 2000 panelon 07-03-2025 Albumin [Mass/Vol] 4.1 g/dL Normal 3.9-4.9 [facility] Comment on above: Order Comment: Speci men Type: BLOOD SPECIMEN Ordering Facility: [facility] Address: [place] [address] Performed By: #### 2 4323-8, 39964-2 #### [facility] [id number] [address] [place] [address] [place] ALP [Catalytic activity/Vol] 59 U/L Normal 38-113 [facility] Comment on above: Order Comment: Speci men Type: BLOOD SPECIMEN Ordering Facility: [facility] Address: [facility] [address] Performed By: #### 2 4323-8, #### [facility] CLIA [id number] [address] [place] [address] [place] ALT [Catalytic activity/Vol] 21 U/L Normal 10-54 [facility] Comment on above: Order Comment: Speci men Type: BLOOD SPECIMEN Ordering Facility: [facility] Address: [address], [place] [address] Performed By: #### 2 4323-8, #### [facility] CLIA [id number] [address] [place] [address] [place] Anion gap [Moles/Vol] 10 mmol/L Normal 8-15 [facility] Comment on above: Order Comment: Speci men Type: BLOOD SPECIMEN Ordering Facility: [facility] Address: [address], [place] [address] Performed By: #### 2 4323-8, #### [facility] CLIA [id number] [address] [place] [address] [place] AST [Catalytic activity/Vol] 26 U/L Normal 14-40 [facility] Comment on above: Order Comment: Speci men Type: BLOOD SPECIMEN Ordering Facility: [facility] Address: [address], [place] [address] Performed By: #### 2 4323-8, #### [facility] CLIA [id number] [address] [place] [address] [place] Bilirubin [Mass/Vol] 0.4 mg/dL Normal 0.2-1.3 [facility] Comment on above: Order Comment: Speci men Type: BLOOD SPECIMEN Ordering Facility: [facility] Address: [address], [place] [address] Performed By: #### 2 43211-12, #### [facility] CLIA [id number] [address] [place] [address] [place] Calcium [Mass/Vol] 9.3 mg/dL Normal 8.5-10.2 [facility] Comment on above: Order Comment: Speci men Type: BLOOD SPECIMEN Ordering Facility: [facility] Address: [address] [place] [address] Performed By: #### 2 4328, #### [facility] CLIA [id number] [address] [place] [address] [place] Chloride [Moles/Vol] 101 mmol/L Normal 98-107 [facility] Comment on above: Order Comment: Speci men Type: BLOOD SPECIMEN Ordering Facility: [facility] Address: [facility] [address] Performed By: #### 2 43211-12, #### [facility] CLIA [id number] [address] [place] [address] [place] CO2 [Moles/Vol] 23 mmol/L Normal 22-30 [facility] Comment on above: Order Comment: Speci men Type: BLOOD SPECIMEN Ordering Facility: [facility] Address: [facility] [place] [address] Performed By: #### 2 4328, #### [facility] CLIA [id number] [address] [place] [address] [place] Creatinine [Mass/Vol] 0.79 mg/dL Normal 0.73-1.22 [facility] Comment on above: Order Comment: Speci men Type: BLOOD SPECIMEN Ordering Facility: [facility] Address: [address] [place] [address] Performed By: #### 2 4323-8, #### [facility] CLIA [id number] [address] [place] [address] [place] eGFRcr SerPlBld CKD-EPI 2020 94 mL/min/1.73m??? Normal >=60 [facility] Comment on above: Order Comment: Osman ortega Type: BLOOD SPECIMEN Ordering Facility: [facility] Address: [address] [place] [address] Result Comment: Lisa mated Glomerular Filtration Rate (eGFR) is calculated using the 2020 CKD-EPI creatinine equation. This equation utilizes serum creatinine, sex, and age as parameters. The creatinine assay has traceable calibration to isotope dilution-mass spectrometry. Refer to KDIGO guidelines for clinical interpretation. In patients with unstable renal function, e.g. those with acute kidney injury, the eGFR may not accurately reflect actual GFR. Performed By: #### 2 4323-8, 78019-6 #### [facility] [id number] [address] [place] [address] [place] Glucose [Mass/Vol] 87 mg/dL Normal 74-99 [facility] Comment on above: Order Comment: Osman ortega Type: BLOOD SPECIMEN Ordering Facility: [facility] Address: [address] [facility], [place] [address] Result Comment: The [place] [employer] (ADA) provides guidance for cutoff values for fasting glucose and random glucose. The ADA defines fasting as no caloric intake for at least 8 hours. Fasting plasma glucose results between 100 to 125 mg/dL indicate increased risk for diabetes (prediabetes). Fasting plasma glucose results greater than or equal to 126 mg/dL meet the criteria for diagnosis of diabetes. In the absence of unequivocal hyperglycemia, results should be confirmed by repeat testing. In a patient with classic symptoms of hyperglycemia or hyperglycemic crisis, random plasma glucose results greater than or equal to 200 mg/dL meet the criteria for diagnosis of diabetes. Reference: Standards of Medical Care in Diabetes 2016, [place] [employer]. Diabetes Care. 2016.39(Suppl 1). Performed By: #### 2 4323-8, 73352-4 #### [facility] [id number] [address] [place] [address] [place] Potassium [Moles/Vol] 4.4 mmol/L Normal 3.7-5.1 [facility] Comment on above: Order Comment: Speci men Type: BLOOD SPECIMEN Ordering Facility: [facility] Address: [place] [address] Performed By: #### 2 4323-8, 03496-0 #### [facility] CLIA [id number] [address] [place] [address] [place] Protein [Mass/Vol] 6.9 g/dL Normal 6.3-8.0 [facility] Comment on above: Order Comment: Speci men Type: BLOOD SPECIMEN Ordering Facility: [facility] Address: [place] [address] Performed By: #### 2 4323-8, #### [facility] CLIA [id number] [address] [place] [address] [place] Sodium [Moles/Vol] 134 mmol/L Low 136-144 [facility] Comment on above: Order Comment: Speci men Type: BLOOD SPECIMEN Ordering Facility: [facility] Address: [place] [address] Performed By: #### 2 4323-8, #### [facility] CLIA [id number] [address] [place] [address] [place] Urea nitrogen [Mass/Vol] 28 mg/dL High 9-24 [facility] Comment on above: Order Comment: Speci men Type: BLOOD SPECIMEN Ordering Facility: [facility] Address: [address] [address] Performed By: #### 2 4323-8, 19573-9 #### [facility] CLIA [id number] [address] [place] [address] [place] Ferritin SerPl-mCncon 2024 Ferritin [Mass/Vol] 312.0 ng/mL Normal 30.3-565.7 [facility] Comment on above: Order Comment: Speci men Type: BLOOD SPECIMEN Ordering Facility: [facility] Address: [place] [address] Performed By: #### 5 0190-8, 2275-12, 1988-11 #### [facility] CLIA [id number] [facility] [place] [address] [place] [employer] [facility] 07-03-2025 Iron [Mass/Vol] 74 ug/dL Normal 41-186 [facility] Comment on above: Order Comment: Speci men Type: BLOOD SPECIMEN Ordering Facility: [facility] Address: [place] [address] Performed By: #### 5 0190-8, 2275-12, 1988-11 #### [facility] CLIA [id number] [address] [place] [address] [place] Iron binding capacity [Mass/Vol] 249 ug/dL Normal 232-386 [facility] Comment on above: Order Comment: Speci men Type: BLOOD SPECIMEN Ordering Facility: [facility] Address: [place] [address] Performed By: #### 5 0190-8, 2275-12, 1988-11 #### [facility] CLIA [id number] [address] [place] [address] [place] Iron/TIBC [Molar ratio] 29.7 % Normal 15.0-57.0 [facility] Comment on above: Order Comment: Speci men Type: BLOOD SPECIMEN Ordering Facility: [facility] Address: Tania [place] [address] Performed By: #### 5 0190-8, 2275-12, 1988-11 #### [facility] CLIA [id number] [facility] [place] [id number] [place] Lipid 1996 panelon 10-27-202 5 Cholesterol [Mass/Vol] 182 mg/dL Normal <200 [facility] Comment on above: Order Comment: Osman ortega Type: BLOOD SPECIMEN Ordering Facility: [facility] Address: [address] Fr[address], [place] [address] Result Comment: <200 mg/dL, Desirable 200-239 mg/dL, Borderline high >239 mg/dL, High Performed By: #### 3 024-7, 6-3, 2132-05 #### [facility] CLIA [id number] [address] [place] [address] [place] #### 73145-0 #### [facility] CLIA [id number] [address] [place] [address] [place] [facility] CLIA [id number] [address] [place] [address] [place] Cholesterol in HDL [Mass/Vol] 61 mg/dL Normal >39 [facility] Comment on above: Order Comment: Osman ortega Type: BLOOD SPECIMEN Ordering Facility: [facility] Address: [address], [place] [address] Result Comment: 40-5 9 mg/dL, Acceptable >59 mg/dL, High: Negative risk factor for coronary heart disease <40 mg/dL, Low: Positive risk factor for coronary heart disease Performed By: #### 3 024-7, 63, 2132-05 #### [facility] CLIA [id number] [address] [place] [address] [place] #### 67952-6 #### [facility] CLIA [id number] [address] [place] [address] [place] [facility] CLIA [id number] [address] [place] [address] Cholesterol in LDL [Mass/Vol] 109 mg/dL High <100 [facility] Comment on above: Order Comment: Kurtisi men Type: BLOOD SPECIMEN Ordering Facility: [facility] Address: [address], [place] [address] Result Comment: <100 mg/dL, Optimal 100-129 mg/dL, Near optimal/above optimal 130-159 mg/dL, Borderline high 160-189 mg/dL, High >189 mg/dL, Very high Secondary prevention optimal LDL Cholesterol levels are recommended to be <70 mg/dL LDL cholesterol is calculated using the Tavera-NIH equation. Performed By: #### 3 024-7, 3015-11, 2132-05 #### [facility] CLIA [id number] [facility] [place] #### 13548-5 #### [facility] CLIA [id number] [address] [place] [address] [place] [facility] CLIA [id number] [address] [place] [address] [place] Cholesterol in LDL/Cholesterol in HDL [Mass ratio] 1.79 {ratio} Normal <2.54 [facility] Comment on above: Order Comment: Speci men Type: BLOOD SPECIMEN Ordering Facility: [facility] Address: [address], [place] [address] Result Comment: Refe jamar: 1. National Cholesterol Education Program ATP III Guideline At-A-Glance Quick Desk Reference: National Heart, Lung, and Blood [place]. National Institutes of Health. 2001: NIH Publication No. 01-3305. 2. An International Atherosclerosis Society position paper: global recommendations for the management of dyslipidemia: executive summary, Atherosclerosis. 2014: 232(2):410-413. Performed By: #### 3 024-7, 3015-11, 2132-05 #### [facility] CLIA [id number] [address] [place] [address] [place] #### 53723-8 #### [facility] CLIA [id number] [address] [place] [address] [place] [facility] CLIA [id number] [address] [place] [address] [place] Cholesterol in VLDL [Mass/Vol] 10 mg/dL Normal <30 [facility] Comment on above: Order Comment: Osman ortega Type: BLOOD SPECIMEN Ordering Facility: [facility] Address: [address], [place] [address] Performed By: #### 3 024-7, 3016-3, 2132-05 #### [facility] CLIA [id number] [address] [place] #### 49283-2 #### [facility] CLIA [id number] [address] [place] [address] [place] [facility] CLIA [id number] [address] [place] Cholesterol non HDL [Mass/Vol] 121 mg/dL Normal <130 [facility] Comment on above: Order Comment: Osman ortega Type: BLOOD SPECIMEN Ordering Facility: [facility] Address: [facility] [address], [place] [address] Result Comment: <130 mg/dL, Optimal 130-159 mg/dL, Near optimal/above optimal 160-189 mg/dL, Borderline high 190-219 mg/dL, High >219 mg/dL, Very high Secondary prevention optimal non HDL Cholesterol levels are recommended to be <100 mg/dL Performed By: #### 3 024-7, 3016-3, 2132-05 #### [facility] CLIA [id number] [facility] [address] [place] #### 22534-1 #### [facility] CLIA [id number] [address] [place] [address] [place] [facility] CLIA [id number] [address] [place] Cholesterol.total/Chol esterol in HDL [Mass ratio] 2.98 {ratio} Normal <5.10 [facility] Comment on above: Order Comment: Osman ortega Type: BLOOD SPECIMEN Ordering Facility: [facility] Address: [address] , [place] [address] Performed By: #### 3 024-7, 3015-11, 2132-05 #### [facility] CLIA [id number] [address] [place] [address] [place] #### 05687-2 #### [facility] CLIA [id number] [address] [place] [address] [place] [facility] CLIA [id number] [address] [place] FASTING TIME 12 hrs Normal [facility] Comment on above: Order Comment: Speci men Type: BLOOD SPECIMEN Ordering Facility: [facility] Address: [facility] [place] [address] Performed By: #### 3 024-7, 3015-11, 2132-05 #### [facility] CLIA [id number] [address] [place] [address] [place] #### 25284-7 #### [facility] CLIA [id number] [address] [place] [address] [place] [facility] CLIA [id number] [address] [place] [address] [place] Triglyceride [Mass/Vol] 63 mg/dL Normal <150 [facility] Comment on above: Order Comment: Speci men Type: BLOOD SPECIMEN Ordering Facility: [facility] Address: Tania Franks [facility], [place] [address] Result Comment: <150 mg/dL, Normal 150-199 mg/dL, Borderline high 200-499 mg/dL, High >499 mg/dL, Very high Performed By: #### 3 024-7, 3015-11, 2132-05 #### [facility] CLIA [id number] [address] [place] [address] [place] #### 36798-6 #### [facility] CLIA [id number] [address] [place] [address] [place] [facility] CLIA [id number] [address] [place] [address] [place] Magnesium SerPl-mCncon 07-03 Magnesium [Mass/Vol] 2.0 mg/dL Normal 1.7-2.3 [facility] Comment on above: Order Comment: Speci men Type: URINE SPECIMEN Ordering Facility: [facility] Address: [facility] [address] [facility], [place] [address] Performed By: #### L [id number] #### [facility] CLIA [id number] [address] [place] [address] [place] T4 Free SerPl-mCncon 025 Free T4 [Mass/Vol] 1.9 ng/dL High 0.9-1.7 [facility] Comment on above: Order Comment: Speci men Type: BLOOD SPECIMEN Ordering Facility: [facility] Address: [facility] [place] [address] Performed By: #### 3 024-7, 3015-3, 2132-05 #### [facility] CLIA [id number] [address] [place] [address] [place] #### 42335-9 #### [facility] CLIA [id number] [address] [place] [address] [place] [facility] CLIA [id number] [address] [place] [address] [place] TSH SerPl-aCncon 07-03-2025 TSH Qn 0.952 m[IU]/L Normal 0.270-4.200 [facility] Comment on above: Order Comment: Speci men Type: BLOOD SPECIMEN Ordering Facility: [facility] Address: [facility] [address] [facility], [place] [address] Performed By: #### 3 024-7, 6-3, 2132-05 #### [facility] CLIA [id number] [facility] [place] [address] [place] #### 30687-2 #### [facility] CLIA [id number] [address] [place] [address] [place] [facility] CLIA [id number] [address] [place] [address] [place] URINALYSIS, REFLEX MICROSCOP ICon 07-03-2025 Bilirubin Ql (U) Negative Normal Negative [facility] Comment on above: Order Comment: Speci men Type: URINE SPECIMEN Ordering Facility: [facility] Address: [facility] [place] [address] Performed By: #### L [id number] #### [facility] CLIA [id number] [address] [place] [address] [place] Clarity (Unsp spec) Clear Normal Clear [facility] Comment on above: Order Comment: Speci men Type: URINE SPECIMEN Ordering Facility: [facility] Address: [address] [place] [address] Performed By: #### L [id number] #### [facility] CLIA [id number] [address] [place] [address] [place] Color (U) Yellow Normal Yellow [facility] Comment on above: Order Comment: Speci men Type: URINE SPECIMEN Ordering Facility: [facility] Address: [facility] [place] [address] Performed By: #### L [id number] #### [facility] CLIA [id number] [address] [place] [address] [place] Glucose Test strip (U) [Mass/Vol] Negative Normal Negative [facility] Comment on above: Order Comment: Speci men Type: URINE SPECIMEN Ordering Facility: [facility] Address: [facility] [place] [address] Performed By: #### L [id number] #### [facility] CLIA [id number] [address] [place] [address] [place] Hemoglobin Ql (U) Negative Normal Negative [facility] Comment on above: Order Comment: Speci men Type: URINE SPECIMEN Ordering Facility: [facility] Address: [place] [address] Performed By: #### L [id number] #### [facility] CLIA [id number] [facility] [place] [address] [place] Ketones Ql (U) Negative Normal Negative [facility] Comment on above: Order Comment: Speci men Type: URINE SPECIMEN Ordering Facility: [facility] Address: [facility] [place] [address] Performed By: #### L [id number] #### [facility] CLIA [id number] [address] [place] [address] [place] Leukocyte esterase Test strip Ql (U) Negative Normal Negative [facility] Comment on above: Order Comment: Speci men Type: URINE SPECIMEN Ordering Facility: [facility] Address: [facility] [place] [address] Performed By: #### L [id number] #### [facility] CLIA [id number] [address] [place] [address] [place] Nitrite Ql (U) Negative Normal Negative [facility] Comment on above: Order Comment: Speci men Type: URINE SPECIMEN Ordering Facility: [facility] Address: [place] [address] Performed By: #### L [id number] #### [facility] CLIA [id number] [facility] [place] [address] [place] pH (U) 7.0 [pH] Normal 5.0-8.0 [facility] Comment on above: Order Comment: Speci men Type: URINE SPECIMEN Ordering Facility: [facility] Address: [address] [place] [address] Performed By: #### L [id number] #### [facility] CLIA [id number] [address] [place] [address] [place] Protein (U) [Mass/Vol] Negative Normal Negative Cl [facility] Comment on above: Order Comment: Speci men Type: URINE SPECIMEN Ordering Facility: [facility] Address: [facility] [place] [address] Performed By: #### L [id number] #### [facility] CLIA [id number] [address] [place] [address] [place] Specific gravity (U) [Rel density] 1.011 Normal 1.005-1.030 [facility] Comment on above: Order Comment: Speci men Type: URINE SPECIMEN Ordering Facility: [facility] [place] [address] Performed By: #### L [id number] #### [facility] CLIA [id number] [address] [place] [address] [place] Urobilinogen Ql (U) 0.2 EU/dL Normal 0.2-1.0 EU/dL [facility] Comment on above: Order Comment: Speci men Type: URINE SPECIMEN Ordering Facility: [facility] Address: [facility] [place] [address] Performed By: #### L [id number] #### [facility] CLIA [id number] [address] [place] [address] [place] Vit B12 [facility] 10-27-2 025 Cobalamin (Vitamin B12) [Mass/Vol] 385 pg/mL Normal 232-1245 [facility] Comment on above: Order Comment: Speci men Type: BLOOD SPECIMEN Ordering Facility: [facility] Address: [facility] [place] [address] Performed By: #### 3 024-7, 3016-3, 2132-9 #### [facility] CLIA [id number] [address] [place] [address] [place] #### 21310-9 #### [facility] CLIA [id number] [address] [place], [place] [id number] [place] [facility] CLIA [id number] [address] [place] Low Dose CT Lung Screeningon 06-28-[address] Lung Screening [facility] [address] [place] [address] Lung Screening MR#: [id number] Acct: [id number] Name: JULIA FRANK Rep #: [id number] : 1950 M 74 From: Sp Dewey MD PCP: Dr. Kasie Key MD Status: [facility] CLI Study: Low Dose CT Lung Screening Date of Exam: 06/28 Exam# [id number] Ordering Dr: Rocky Eddy TAX COMPLIANCE MANAGER TAX COMPLIANCE MANAGER -C PROCEDURE: Low-dose CT lung screening 06/28/2025 REASON FOR EXAM: NICOTINE DEPENDENCE TECHNIQUE: Procedure Code: CTLUNGSCREEN Modality: CT Procedure: LOW DOSE CT LUNG SCREENING Coronal and Sagittal reconstruction series were provided. One or more dose reduction techniques were used (e.g., Automated exposure control, adjustment of the mA and/or kV according to patient size, use of iterative reconstruction technique). REFERENCE LINK: [facility] Lung-RADS RADIATION DOSE SUMMARY: CTDlvol: 3.02 mGy DLP: 116.26 mGycm COMPARISON: None FINDINGS: PULMONARY NODULES: (Only nodules >3mm are reported) Lower neck:The thyroid gland is grossly unremarkable. There is no supraclavicular lymphadenopathy. Mediastinum:There are multiple reactive mediastinal lymph nodes, the largest a pretracheal lymph node, measuring 1.8 x 1.2 cm. Heart and Vasculature:The heart size is normal. There is calcific vascular disease of the coronary arteries and thoracic aorta. There is tortuosity of the thoracic aorta. Esophagus:Normal. Upper Abdomen:There is calcific vascular disease of the visualized abdominal aorta. Chest wall:The soft tissues of the chest wall appear unremarkable. There is no axillary lymphadenopathy. There is moderate multilevel degenerative disc disease of the thoracic spine. Lungs, airways and pleura: There is mild upper lobe predominant centrilobular emphysema. There is linear scarring in the posterior basilar segment of the lower lobe of both lungs. There are no pulmonary nodules. There are no pleural effusions. CT/Low Dose CT Lung Screening IMPRESSION: 1. Emphysema. 2. There are no pulmonary nodules. 3. Calcific vascular disease. 4. Other findings as noted. Lung-RADS Category: 1 S: Negative. Emphysema. Calcific vascular disease. Recommendation: Follow up low-dose chest CT in 12 months. Reading Location: [place] [address] CC: Rocky ODELL McMorrow; Dr. Kasie Key MD Hat Cleaner: Signed Normal [facility] T4 Free Directon 06-07-2025 T4 FREE DIRECT 1.80 ng/dL High 0.76-1.46 [facility] Comment on above: Order Comment: Order Date: 04/21/25 Order Info: 3016-3 - TSH Order Info: 3024-7 - T4F Performed By: #### L 506.0400 #### [facility] [address] [place], [address] T4 freeOrdered By: Karri fitzgerald on 06-07-2025 Free T4 [Mass/Vol] 1.80 ng/dL High 0.76-1.46 [facility] TSH DL <= 0.005 mIU/L QnOrde red By: Karri Perla on 06-07-2025 TSH Qn 0.715 uIU/mL 0.300-4.200 [facility] Thyroid Stim Hormone (TSH)on 06-07-2025 TSH 0.715 uIU/mL Normal 0.300-4.200 [facility] Comment on above: Order Comment: Order Date: 04/21/25 Order Info: 3016-3 - TSH Order Info: 3024-7 - T4F Performed By: #### L 501.9520 #### [facility] [address] [place], [address] TSH DL <= 0.005 mIU/L QnOrde red By: Jelena Patiño on 04-17-2025 TSH Qn 0.227 uIU/mL Low 0.300-4.200 [facility] Thyroid Stim Hormone (TSH)on 04-17-2025 TSH 0.227 uIU/mL Low 0.300-4.200 [facility] Comment on above: Order Comment: Order Date: 04/21/25 Order Info: 3016-3 - TSH Order Info: 3024-7 - T4F Performed By: #### L 506.0400 #### [facility] [address] [facility] [address] AST(SGOT)on 11-04-2024 AST [Catalytic activity/Vol] 37 U/L Normal <=37 [facility] Comment on above: Order Comment: ADD O N AST AND PSAD TO LABS DONE 11 04 24 Performed By: #### L 501.0900, L500.4100, L501.9520, L501.9940, L500.2500, L501.4405, L501.4100, L501.9310 #### [facility] [address] [facility] [place], [address] Alanine Aminotransferas (SGP T)on 11-04-2024 ALT [Catalytic activity/Vol] 26 U/L Normal <=46 [facility] Comment on above: Performed By: #### L 501.0900, L500.4100, L501.9520, L501.9940, L500.2500, L501.4405, L501.4100, L501.9310 #### [facility] [address] [facility] [place], [address] BUN/creatinine ratioOrdered By: Jelena Patiño on 11-04-2024 Urea nitrogen/Creatinine [Mass ratio] 23.1 mg/mg High 10-20 [facility] Basic Metabolic Profile (BMP )on 11-04-2024 Anion gap [Moles/Vol] 10 mmol/L Normal 5-15 [facility] Comment on above: Performed By: #### L 501.0900, L500.4100, L501.9520, L501.9940, L500.2500, L501.4405, L501.4100, L501.9310 #### [facility] [address] [place], [address] BUN/CRE 23.1 RATIO High 10-20 [facility] Comment on above: Performed By: #### L 501.0900, L500.4100, L501.9520, L501.9940, L500.2500, L501.4405, L501.4100, L501.9310 #### [facility] [address] [place], [address] Calcium [Mass/Vol] 9.3 mg/dL Normal 7.6-11.0 [facility] Comment on above: Performed By: #### L 501.0900, L500.4100, L501.9520, L501.9940, L500.2500, L501.4405, L501.4100, L501.9310 #### [facility] [address] [place], [address] Chloride [Moles/Vol] 100 mmol/L Normal 96-108 [facility] Comment on above: Performed By: #### L 501.0900, L500.4100, L501.9520, L501.9940, L500.2500, L501.4405, L501.4100, L501.9310 #### [facility] [address] [place], [address] CO2 [Moles/Vol] 25.3 mmol/L Normal 22.0-29.0 [facility] Comment on above: Performed By: #### L 501.0900, L500.4100, L501.9520, L501.9940, L500.2500, L501.4405, L501.4100, L501.9310 #### [facility] [address] [place], [address] Creatinine [Mass/Vol] 0.85 mg/dL Normal 0.70-1.20 [facility] Comment on above: Performed By: #### L 501.0900, L500.4100, L501.9520, L501.9940, L500.2500, L501.4405, L501.4100, L501.9310 #### [facility] [address] [place], [address] GFR/1.73 sq M.predicted among non-blacks MDRD (S/P/Bld) [Vol rate/Area] 92 mL/min/{1.73_m2} Normal >60 [facility] Comment on above: Result Comment: mL/m in/1.73m2 CKD-EPI Creatinine Equation (2020) Performed By: #### L 501.0900, L500.4100, L501.9520, L501.9940, L500.2500, L501.4405, L501.4100, L501.9310 #### [facility] [address] [place], [address] Glucose [Mass/Vol] 81 mg/dL Normal 70-99 [facility] Comment on above: Performed By: #### L 501.0900, L500.4100, L501.9520, L501.9940, L500.2500, L501.4405, L501.4100, L501.9310 #### [facility] [address] [place], [address] Potassium [Moles/Vol] 3.9 mmol/L Normal 3.3-5.1 [facility] Comment on above: Performed By: #### L 501.0900, L500.4100, L501.9520, L501.9940, L500.2500, L501.4405, L501.4100, L501.9310 #### [facility] [address] [place], [address] Sodium [Moles/Vol] 136 mmol/L Normal 133-145 [facility] Comment on above: Performed By: #### L 501.0900, L500.4100, L501.9520, L501.9940, L500.2500, L501.4405, L501.4100, L501.9310 #### [facility] [address] [place], [address] Urea nitrogen [Mass/Vol] 20 mg/dL High 4-19 [facility] Comment on above: Performed By: #### L 501.0900, L500.4100, L501.9520, L501.9940, L500.2500, L501.4405, L501.4100, L501.9310 #### [facility] [address] [facility] [place], [address] Calculated very low density lipoprotein (VLDL) cholesterol measurementOrdered By: Jelena Patiño on 11-04-2024 VLDL Cholesterol 13 mg/dL 5-40 [facility] Carbon dioxide measurementOr dered By: Jelena Patiño on 11-04-2024 CO2 [Moles/Vol] 25.3 mmol/L 22.0-29.0 [facility] Chloride measurementOrdered By: Jelena Patiño on 11-04-2024 Chloride [Moles/Vol] 100 mmol/L 96-108 [facility] Diagnostic total prostate sp ecific antigen (PSA) measurementOrdered By: Jelena Patiño on 11-04-2024 Prostate Specific Antigen Total 0.40 ng/mL 0.00-4.00 [facility] Comment on above: This test was [...] Estimated GFR (MDRD) Non-Af Amer 92 >60 [facility] Comment on above: mL/min/1.73m2 CKD-EP I Creatinine Equation (2020) LDL calc ser/plasOrdered By: Jelena Patiño on 11-04-2024 LDL Cholesterol, Calculated 92 mg/dL [facility] Comment on above: Ezcofeqnct=175-325 m g/dL & Higher Nmrc=410 mg/dL or greater Laboratory - Chemistry and C hemistry - challengeOrdered By: Jelena Patiño on 11-04-2024 AST [Catalytic activity/Vol] 37 U/L <38 [facility] Lipid Profileon 11-04-2024 CHOL:HDL 2.68 Normal [facility] Comment on above: Order Comment: ADD O N AST AND PSAD TO LABS DONE 11 04 24 Performed By: #### L 501.0900, L500.4100, L501.9520, L501.9940, L500.2500, L501.4405, L501.4100, L501.9310 #### [facility] [address] [place], [address] Cholesterol [Mass/Vol] 168 mg/dL Normal <=200 [facility] Comment on above: Order Comment: ADD O N AST AND PSAD TO LABS DONE 11 04 24 Result Comment: Chol esterol level, Desirable <200 mg/dL Borderline high cholesterol 200-239 mg/dL High cholesterol >=240 mg/dL Recommendations of the NCEP Adult Treatment Panel for the following risk-cutoff thresholds for the [place] population. Performed By: #### L 501.0900, L500.4100, L501.9520, L501.9940, L500.2500, L501.4405, L501.4100, L501.9310 #### [facility] [address] [place], [address] Cholesterol in HDL [Mass/Vol] 63 mg/dL Normal [facility] Comment on above: Order Comment: ADD [...] L501.9520, L501.9940, L500.2500, L501.4405, L501.4100, L501.9310 #### [facility] [address] [place], [address] Cholesterol in LDL [Mass/Vol] 92 mg/dL Normal [facility] Comment on above: Order Comment: ADD O N AST AND PSAD TO LABS DONE 11 04 24 Result Comment: Bord mjqhzr=050-997 mg/dL Higher Fkpm=845 mg/dL or greater Performed By: #### L 501.0900, L500.4100, L501.9520, L501.9940, L500.2500, L501.4405, L501.4100, L501.9310 #### [facility] [address] [place], [address] Cholesterol in VLDL [Mass/Vol] 13 mg/dL Normal 5-40 [facility] Comment on above: Order Comment: ADD O N AST AND PSAD TO LABS DONE 11 04 24 Performed By: #### L 501.0900, L500.4100, L501.9520, L501.9940, L500.2500, L501.4405, L501.4100, L501.9310 #### [facility] [address] [place], [address] Triglyceride [Mass/Vol] 66 mg/dL Normal [facility] Comment on above: Order Comment: ADD O N AST AND PSAD TO LABS DONE 11 04 24 Result Comment: The drugs N-Acetylcysteine and Metamizole may falsely depress this assay. Normal range: <150 mg/dL Borderline High: 150-199 mg/dL High: 200-499 mg/dL Very High: >500 mg/dL Performed By: #### L 501.0900, L500.4100, L501.9520, L501.9940, L500.2500, L501.4405, L501.4100, L501.9310 #### [facility] [address] [place], [address] PSA,Total- Diagnosticon 10-09 PSA, DIAGNOSTIC 0.40 ng/mL Normal 0.00-4.00 [facility] Comment on above: Order Comment: ADD [...] L501.9520, L501.9940, L500.2500, L501.4405, L501.4100, L501.9310 #### [facility] [address] [place], [address] Protein+Creatinine Ratio,Uri neon 11-04-2024 PROT:CRE RATIO Normal 0-200 [facility] Comment on above: Result Comment: PT T O RETURN TO OFFICE FOR THIS PER PT Performed By: #### L 501.0900, L500.4100, L501.9520, L501.9940, L500.2500, L501.4405, L501.4100, L501.9310 #### [facility] [address] [place], [address] PROTEIN,UR.RAN. Normal 0.0-12.0 [facility] Comment on above: Result Comment: PT T O RETURN TO OFFICE FOR THIS PER PT Performed By: #### L 501.0900, L500.4100, L501.9520, L501.9940, L500.2500, L501.4405, L501.4100, L501.9310 #### [facility] [address] [place], [address] UR CREAT Normal 39-259 [facility] Comment on above: Result Comment: PT T O RETURN TO OFFICE FOR THIS PER PT Performed By: #### L 501.0900, L500.4100, L501.9520, L501.9940, L500.2500, L501.4405, L501.4100, L501.9310 #### [facility] [address] [place], [address] Screening total cholesterol/ high density lipoprotein (HDL) cholesterol ratioOrdered By: Jelena Patiño on 11-04-2024 Cholesterol.total/Chol esterol in HDL [Mass ratio] 2.68 {ratio} [facility] Serum creatinine measurement (mass/volume)Ordered By: Jelena Patiño on 11-04-2024 Creatinine [Mass/Vol] 0.85 mg/dL 0.70-1.20 [facility] Serum glucose measurement (m ass/volume)Ordered By: Jelena Patiño on 11-04-2024 Glucose [Mass/Vol] 81 mg/dL 70-99 [facility] Serum or plasma alanine knapp otransferase (ALT) measurementOrdered By: Jelena Patiño on 11-04-2024 ALT [Catalytic activity/Vol] 26 U/L <47 [facility] Serum or plasma anion gap de termination (moles/volume)Ordered By: Jelena Patiño on 11-04-2024 Anion gap [Moles/Vol] 10 mmol/L 5-15 [facility] Serum or plasma calcium casey urement (mass/volume)Ordered By: Jelena Patiño on 11-04-2024 Calcium [Mass/Vol] 9.3 mg/dL 7.6-11.0 [facility] Serum or plasma cholesterol in HDL measurement (mass/volume)Ordered By: Jelena Patiño on 11-04-2024 Cholesterol in HDL [Mass/Vol] 63 mg/dL >40 [facility] Comment on above: National Cholesterol Education Program (NCEP) guidelines:<40 mg/dL: Low HDL-cholesterol (major risk factor for CHD)>= 60 mg/dL: High HDL-cholesterol (negative risk factor for CHD)HDL-cholesterol is affected by a number of factors, e.g. smoking, exercise, hormones, sex and age. Serum or plasma cholesterol measurement (mass/volume)Ordered By: Jelena Patiño on 11-04-2024 Cholesterol [Mass/Vol] 168 mg/dL <201 [facility] Comment on above: Cholesterol level, D esirable <200 mg/dLBorderline high cholesterol 200-239 mg/dLHigh cholesterol >=240 mg/dLRecommendations of the NCEP Adult Treatment Panel for the following risk-cutoff thresholds for the [place] population. Serum or plasma potassium me asurementOrdered By: Jelena Patiño on 11-04-2024 Potassium [Moles/Vol] 3.9 mmol/L 3.3-5.1 [facility] Serum or plasma sodium measu rement (moles/volume)Ordered By: Jelena Patiño on 11-04-2024 Sodium [Moles/Vol] 136 mmol/L 133-145 [facility] Serum or plasma urea nitroge n measurement (mass/volume)Ordered By: Jelena Patiño on 11-04-2024 Urea nitrogen [Mass/Vol] 20 mg/dL High 4-19 [facility] T4 Total, Thyroxinon 025 T4 [Mass/Vol] 7.7 ug/dL Normal 4.5-12.1 [facility] Comment on above: Performed By: #### L 501.0900, L500.4100, L501.9520, L501.9940, L500.2500, L501.4405, L501.4100, L501.9310 #### [facility] [place], [address] TSH DL <= 0.005 mIU/L QnOrde red By: Jelena Patiño on 11-04-2024 Thyroid Stimulating Hormone (TSH) 16.800 uIU/mL High 0.300-4.200 [facility] Thyroid Stim Hormone (TSH)on 11-04-2024 TSH 16.800 uIU/mL High 0.300-4.200 [facility] Comment on above: Performed By: #### L 501.0900, L500.4100, L501.9520, L501.9940, L500.2500, L501.4405, L501.4100, L501.9310 #### [facility] [place], [address] ThyroxineOrdered By: Jelena brooks on 11-04-2024 T4 [Mass/Vol] 7.7 ug/dL 4.5-12.1 [facility] Triglycerides measurementOrd ered By: Jelena Patiño on 11-04-2024 Triglyceride [Mass/Vol] 66 mg/dL <199 [facility] Comment on above: The drugs N-Acetylcy steine and Metamizole may falsely depress this assay. Normal range: <150 mg/dLBorderline High: 150-199 mg/dLHigh: 200-499 mg/dLVery High: >500 mg/dL Thin prep Papanicolaou smear with manual screeningOrdered By: Jelena Patiño on 11-18-2023 Protein (U) [Mass/Vol] 8.9 mg/dL 0.0-11.8 [facility] Urine creatinine measurement (mass/volume)Ordered By: Jelena Patiño on 11-18-2023 Creatinine (U) [Mass/Vol] 47.90 mg/dL NO RANGE EST. [facility] Urine protein/creatinine mas s ratioOrdered By: Jelena Patiño on 11-18-2023 Protein/Creatinine (U) [Mass ratio] 186 mg/g CRE 0-200 [facility] Basophil percentageOrdered B y: Jelena Patiño on 11-17-2023 Chloride [Moles/Vol] 105 mmol/L 98-107 [facility] Cholesterol [Mass/Vol] 190 mg/dL <200 [facility] Comment on above: <200 mg/dL Desirable 200-240 mg/dL Borderline >240 mg/dL High Risk Glucose [Mass/Vol] 83 mg/dL 74-106 [facility] Potassium [Moles/Vol] 3.8 mmol/L 3.5-5.1 [facility] Sodium [Moles/Vol] 137 mmol/L 136-145 [facility] Triglyceride [Mass/Vol] 49 mg/dL <199 [facility] Comment on above: The drugs N-Acetylcy steine and Metamizole may falsely depress this assay.Serum Triglycerides Reference Interval Normal <150 mg/dL Borderline high 150 - 199 mg/dL High 200 - 499 mg/dL Very High > or = 500 mg/dL Laboratory - Chemistry and C hemistry - challengeOrdered By: Jelena Patiño on 11-17-2023 ALT [Catalytic activity/Vol] 43 U/L 16-61 [facility] Cholesterol in HDL [Mass/Vol] 71 mg/dL >40 [facility] Comment on above: The drugs N-Acetylcy steine and Metamizole may falsely depress this assay. Reference Range HDL <40 mg/dL Low HDL Cholesterol HDL >or= 60 mg/dL High HDL Cholesterol Cholesterol in LDL [Mass/Vol] 109 mg/dL 0-130 [facility] CO2 [Moles/Vol] 25.0 mmol/L 21.0-32.0 [facility] Urea nitrogen/Creatinine [Mass ratio] 9.8 mg/mg 10-20 [facility] No Panel InformationOrdered By: Jelena Patiño on 11-17-2023 Estimated GFR (MDRD) Amer 105 mL/min >60 [facility] Comment on above: GFR Calc Estimated GFR (MDRD) Non-Af Amer 87 mL/min >60 [facility] Comment on above: Non- GFR Calc VLDL Cholesterol 10 mg/dL 5-40 [facility] Serum or plasma calcium casey urement (mass/volume)Ordered By: Jelena Patiño on 11-17-2023 Calcium [Mass/Vol] 9.0 mg/dL 8.5-10.1 [facility] Serum or plasma creatinine m easurement (mass/volume)Ordered By: Jelena Patiño on 11-17-2023 Creatinine [Mass/Vol] 0.92 mg/dL 0.70-1.30 [facility] Comment on above: The validity of the calculated GFR & GFRAA in patients over 70 years has not been determined. Clinical correlation is essential. Serum or plasma thyroid stim ulating hormone (TSH) measurement (units/volume)Ordered By: Jelena Patiño on 11-17-2023 TSH Qn 5.19 uIU/mL 0.358-3.74 [facility] Serum or plasma thyroxine (T 4) measurement (mass/volume)Ordered By: Jelena Patiño on 11-17-2023 T4 [Mass/Vol] 11.8 ug/dL 4.5-12.1 [facility] Serum or plasma urea nitroge n measurement (mass/volume)Ordered By: Jelena Patiño on 11-17-2023 Urea nitrogen [Mass/Vol] 9 mg/dL 7-18 [facility] Thin prep Papanicolaou smear with manual screeningOrdered By: Jelena Patiño on 11-17-2023 Thin prep Papanicolaou smear with manual screening 73 U/L 15-37 [facility] Thin prep Papanicolaou smear with manual screening 7 5-15 [facility] Basophil percentageon 2021 Chloride [Moles/Vol] 103 mmol/L 98-107 [facility] Work Phone: Glucose [Mass/Vol] 97 mg/dL 74-106 [facility] Work Phone: Potassium [Moles/Vol] 4.5 mmol/L 3.5-5.1 [facility] Work Phone: Sodium [Moles/Vol] 137 mmol/L 136-145 [facility] Work Phone: Testosterone [Mass/Vol] 386.01 ng/dL [facility] Work Phone: Comment on above: CENTRAL 90% REFERENC E RANGES MALE AGE <50 197.44 - 669.58 ng/dL MALE AGE > or = 50 187.72 - 684.19 ng/dL FEMALE AGE <50 8.38 - 35.01 ng/dL FEMALE AGE > or = 50 <7.00 - 35.92 ng/dL Effective as of 04/02/21 Laboratory - Chemistry and C hemistry - challengeon 05-16-2022 CO2 [Moles/Vol] 27.0 mmol/L 21.0-32.0 [facility] Work Phone: Urea nitrogen/Creatinine [Mass ratio] 18.4 mg/mg 10-20 [facility] Work Phone: No Panel Informationon 05-16 Estimated GFR (MDRD) Amer 97 mL/min >60 [facility] Work Phone: Comment on above: GFR Calc Estimated GFR (MDRD) Non-Af Amer 80 mL/min >60 [facility] Work Phone: Comment on above: Non- GFR Calc Serum or plasma calcium casey urement (mass/volume)on 05-16-2022 Calcium [Mass/Vol] 9.1 mg/dL 8.5-10.1 [facility] Work Phone: Serum or plasma creatinine m easurement (mass/volume)on 05-16-2022 Creatinine [Mass/Vol] 0.98 mg/dL 0.70-1.30 [facility] Work Phone: Comment on above: The validity of the calculated GFR & GFRAA in patients over 70 years has not been determined. Clinical correlation is essential. Serum or plasma urea nitroge n measurement (mass/volume)on 05-16-2022 Urea nitrogen [Mass/Vol] 18 mg/dL 7-18 [facility] Work Phone: Thin prep Papanicolaou smear with manual screeningon 05-16-2022 Thin prep Papanicolaou smear with manual screening 7 5-15 [facility] Work Phone: Basophil percentageon 2021 Chloride [Moles/Vol] 104 mmol/L 98-107 [facility] Work Phone: Cholesterol [Mass/Vol] 209 mg/dL <200 [facility] Work Phone: Comment on above: <200 mg/dL Desirable 200-240 mg/dL Borderline >240 mg/dL High Risk Glucose [Mass/Vol] 127 mg/dL 74-106 [facility] Work Phone: Comment on above: Fasting Glucose resu lt greater than or equal to 126 mg/dL suggests DIABETES MELLITUS per A.D.A. criteria. Potassium [Moles/Vol] 4.0 mmol/L 3.5-5.1 [facility] Work Phone: Sodium [Moles/Vol] 137 mmol/L 136-145 [facility] Work Phone: Triglyceride [Mass/Vol] 232 mg/dL <199 [facility] Work Phone: Comment on above: The drugs N-Acetylcy steine and Metamizole may falsely depress this assay.Serum Triglycerides Reference Interval Normal <150 mg/dL Borderline high 150 - 199 mg/dL High 200 - 499 mg/dL Very High > or = 500 mg/dL Laboratory - Chemistry and C hemistry - challengeon 02-10-2022 CO2 [Moles/Vol] 25.0 mmol/L 21.0-32.0 [facility] Work Phone: T4 [Mass/Vol] 11.4 ug/dL 4.5-12.1 [facility] Work Phone: Urea nitrogen/Creatinine [Mass ratio] 14.2 mg/mg 10-20 [facility] Work Phone: No Panel Informationon 02-10 Estimated GFR (MDRD) Amer 68 mL/min >60 [facility] Work Phone: Comment on above: GFR Calc Estimated GFR (MDRD) Non-Af Amer 56 mL/min >60 [facility] Work Phone: Comment on above: Non- GFR Calc Thyroid Stimulating Hormone (TSH) 4.63 uIU/mL 0.358-3.74 [facility] Work Phone: Serum or plasma calcium casey urement (mass/volume)on 02-10-2022 Calcium [Mass/Vol] 9.5 mg/dL 8.5-10.1 [facility] Work Phone: Serum or plasma cholesterol in HDL measurement (mass/volume)on 02-10-2022 Cholesterol in HDL [Mass/Vol] 44 mg/dL >40 [facility] Work Phone: Comment on above: The drugs N-Acetylcy steine and Metamizole may falsely depress this assay. Reference Range HDL <40 mg/dL Low HDL Cholesterol HDL >or= 60 mg/dL High HDL Cholesterol Serum or plasma cholesterol in VLDL measurement (mass/volume)on 02-10-2022 Cholesterol in VLDL [Mass/Vol] 46 mg/dL 5-40 [facility] Work Phone: Serum or plasma creatinine m easurement (mass/volume)on 02-10-2022 Creatinine [Mass/Vol] 1.34 mg/dL 0.70-1.30 [facility] Work Phone: Comment on above: The validity of the calculated GFR & GFRAA in patients over 70 years has not been determined. Clinical correlation is essential. Serum or plasma low density lipoprotein (LDL) cholesterol measurement (mass/volume)on 02-10-2022 Cholesterol in LDL [Mass/Vol] 119 mg/dL 0-130 [facility] Work Phone: Serum or plasma urea nitroge n measurement (mass/volume)on 02-10-2022 Urea nitrogen [Mass/Vol] 19 mg/dL 7-18 [facility] Work Phone: Thin prep Papanicolaou smear with manual screeningon 02-10-2022 Thin prep Papanicolaou smear with manual screening 8 5-15 [facility] Work Phone: Clinical Summary: DomingoLazarored johns 12-11-2021 MC25 OP Hand Invalid Interpretation Code [facility] Work Phone: XR DIGIT GENERAL 3V FRONTAL/ LAT/OBL LTon 10-16-2020 [facility] Office Visit: Spine Visiton 06-02-2017 Documentation of current medications (procedure) Done Invalid Interpretation Code [facility] Work Phone: Protein mass conc Done Invalid Interpretation Code [facility] Work Phone: Tobacco smoking status NHIS Former smoker Invalid Interpretation Code [facility] Work Phone: Tobacco use CPHS Former smoker Invalid Interpretation Code [facility] Work Phone: Office Visiton 07-26-2013 Documentation of current medications (procedure) Done Invalid Interpretation Code [facility] Work Phone: Protein mass conc Done [facility] Work Phone: Lab Report: BMPon 07-14-2013 Calcium 8.6 mg/dL Normal 8.5-10.1 [facility] Work Phone: Chloride 103 mmol/L Normal 98-107 [facility] Work Phone: CO2 9 mmol/L Normal 5-15 [facility] Work Phone: Creatinine 1.0 mg/dL Normal 0.8-1.3 [facility] Work Phone: Glucose 86 mg/dL Normal 70-110 [facility] Work Phone: Glucose mass conc 86 mg/dL Normal 70-110 [facility] Work Phone: Potassium 4.0 mmol/L Normal 3.5-5.1 [facility] Work Phone: Sodium 139 mmol/L Normal 136-145 [facility] Work Phone: Urea nitrogen 17 mg/dL Normal 7-18 [facility] Work Phone: Lab Report: CBCDon 3 Erythrocytes (RBC) 4.22 10*6/uL Low 4.6-6.2 [facility] Work Phone: Hematocrit (HCT) 38.7 % Low 40-54 [facility] Work Phone: Hematocrit Volume Fraction (Bld) 38.7 % Low 40-54 [facility] Work Phone: Hemoglobin (HGB) 12.9 g/dL Low 13.0-16.5 [facility] Work Phone: Platelets 213 10*3/mm3 Normal 150-450 [facility] Work Phone: Platelets #/vol (Bld) 213 10*3/mm3 Normal 150-450 [facility] Work Phone: RBC #/vol (Bld) 4.22 10*6/uL Low 4.6-6.2 [facility] Work Phone: WBC #/vol (Bld) 5.3 10*3/uL Normal 4.4-11.0 [facility] Work Phone: WBC (Leukocytes) 5.3 10*3/uL Normal 4.4-11.0 [facility] Work Phone: Clinical Lists Update: Prelo heel seat laster 07-12-2013 Tobacco smoking status NHIS former smoker [facility] Work Phone: Tobacco use CPHS former smoker Invalid Interpretation Code [facility] Work Phone: Vital Signs Date Time Vital Sign Value Performing Clinician Facility 06-02-2017 09:57-0400 BMI (Body Mass Index) 33.04 kg/m2 [facility] Work Phone: 06-02-2017 09:57-0400 [facility] Work Phone: 07-26-2013 09:33-0500 BMI (Body Mass Index) 35.53 kg/m2 Dk Maru [facility] Work Phone: 07-26-2013 09:33-0500 Body Temperature 96.7 [degF] Dk Maru [facility] Work Phone: 07-26-2013 09:33-0500 BP Diastolic 87 mm[Hg] Dk Mahoney [facility] Work Phone: 07-26-2013 09:33-0500 BP Systolic 134 mm[Hg] Dk Maru [facility] Work Phone: 07-26-2013 09:33-0500 BSA (Body Surface Area) 2.26 m2 [facility] Work Phone: 07-26-2013 09:33-0500 Pulse (Heart Rate) 63 /[facility] Work Phone: 07-26-2013 09:33-0500 Respiratory Rate 14 /min [facility] Work Phone: 07-26-2013 09:33-0500 Weight 110.32 kg Dk [facility] Work Phone: 07-12-2013 13:56-0500 Height 176.53 cm [facility] Work Phone: NEGATED: Highlighted [id number] 14:14-0400 Body height 180.34 cm Leroy Acuna AT [facility] Work Phone: NEGATED: Highlighted [id number] 14:14-0400 Body height 180 cm Leroy Briceland AT [facility] Work Phone: NEGATED: Highlighted [id number] 14:14-0400 Body mass index (BMI) [Ratio] 36.95 kg/m2 Leroy Acuna AT [facility] Work Phone: NEGATED: Highlighted [id number] 14:14-0400 Body weight 119.75 kg Leroy Hancockland AT [facility] Work Phone: NEGATED: Highlighted [id number] 14:14-0400 Body weight 120 kg Leroy Acuna AT [facility] Work Phone: Encounters Encounter Date Encounter Type Care Provider Facility Start: 07-26-2025 ambulatory Kasie Porter y:[facility] Start: 07-03-2025 End: 07-03-2025 ambulatory JEAN PAUL PERLA Facility:[facility] Start: 06-28-2025 End: 06-28-2025 ambulatory Rocky Eddy Facility:[facility] Start: 06-07-2025 End: 06-07-[address] Jelena Patiño MD Work Phone: -[facility]atory [facility] Start: 06-07-2025 End: 06-07-[address] Karri Perla MD -[facility] Start: 06-07-2025 End: 06-07-2025 ambulatory Karri Perla Facility:[facility] Start: 04-17-2025 End: 04-17-[address] Jelena Patiño MD Work Phone: -Laboratory [facility] Start: 04-17-2025 End: 04-17-[address] Kasie Key MD -[facility] Start: 04-17-2025 End: 04-17-2025 ambulatory Jelena Patiño Facility:[facility] Start: 11-04-2024 End: 11-04-[address] Jelena Patiño MD Work Phone: [facility] Work Phone: Start: 11-04-2024 End: 11-04-[address] Jelena Patiño MD -[facility] Work Phone: Start: 11-04-2024 End: 11-04-2024 ambulatory Jelena Patiño Facility:[facility] Start: 11-17-2023 End: 11-17-2023 ambulatory [facility] Work Phone: Start: 11-17-2023 End: 11-17-2023 Patient encounter procedure [facility] Start: 11-06-2022 End: 11-06-2022 ambulatory [facility] Work Phone: Start: 11-06-2022 End: 11-06-2022 [facility] Start: 05-16-2022 End: 05-16-2022 [facility] Start: 02-10-2022 End: 02-10-2022 Patient encounter procedure [facility] Start: 01-20-2022 Registered Recurring Wo [facility] Start: 10-16-2020 End: 10-16-2020 Subsequent hospital visit by physician Xr [facility] Comment on above: Pain [R52] Start: 09-06-2020 End: 09-06-2020 Orders Only Raheem Mickie Work Phone: [facility] [place] Comment on above: Pain (Primary Dx) Procedures Date Procedure Procedure Detail Performing Clinician Start: 11-06-2022 Plain chest X-ray Start: 12-11-2021 End: 12-16-2021 BP scrn no perf at interval Doreen Ocampo PA-C Work Phone: Start: 12-11-2021 End: 12-16-2021 Calc BMI abv up jani f/u Doreen Ocampo PA-C Work Phone: Start: 12-11-2021 End: 12-16-2021 Current tobacco non-user cad cap copd pv dm Doreen Ocampo PA-C Work Phone: Start: 12-11-2021 End: 12-16-2021 Docrev cur meds by kell Ocampo PA-C Work Phone: Start: 12-11-2021 End: 12-16-2021 Osteoarthritis symptoms&funcjal status asses Doreen Ocampo PA-C Work Phone: Start: 12-11-2021 End: 12-16-2021 Pain neg no plan Doreen Ocampo PA-C Work Phone: Start: 12-11-2021 End: 12-16-2021 Patient encounter procedure Doreen Ocampo PA-C Work Phone: Start: 10-16-2020 Radex fingr minimum 2 views Raheem Corado MD Work Phone: Start: 07-18-2013 Rpr umbilical hernia age 6 yrs/> incarcerated Cesilia M Ramin Work Phone: Start: 07-18-2013 Rpr umbil priscilla, bloc k > 5 yr Cesilia Faustin Work Phone: NEGATED: Highlighted rowStart: 12-11-2021 End: 12-11-2021 Documentation of current medications Leroy Acuna AT Plan of Treatment Date Care Activity Detail Author Start: 05-08-2023 Influenza vaccination Influenza Vacc ine (#1) [facility] Start: 09-07-2022 Advance Directive Discussion Advance Directive Discussion [facility] Start: 09-07-2022 Depression Assessment Depression Ass essment [facility] Start: 01-01-2022 End: 01-01-2022 Patient encounter procedure Appointment [facility] Work Phone: Start: 06-17-2017 End: 06-17-2017 Physical Therapy General Physical Therapy [facility], [address] [place] [address], [id number] [facility] Work Phone: Start: 06-02-2017 End: 06-02-2017 Radex spine lumbosacral minimum 4 views X-Ray, Spine, Lumbosacral 4 views [facility] Work Phone: Start: 06-02-2017 End: 06-02-2017 Appointment [facility] Work Phone: Start: 06-02-2017 End: 06-02-2017 Radex spine lumbosacral minimum 4 views X-Ray, Spine, Lumbosacral 4 views [facility] Work Phone: Start: 11-27-2016 Pneumococcal Vaccine : 65+ (1 - PCV) Pneumococcal Vaccine: 65+ (1 - PCV) [facility] Start: 2011 RSV Vaccine (1 - 1-d ose 60+ series) RSV Vaccine (1 - 1-dose 60+ series) [facility] Start: 11-27-2001 Shingrix Vaccine (1 of 2) Shingrix Vaccine (1 of 2) [facility] Start: 11-27-1996 Cologuard (FIT-DNA) Cologuard (FIT-D NA) [facility] Start: 11-27-1996 Colonoscopy Colonoscopy [facility] Start: 11-27-1996 Colorectal Cancer Screening Colorectal Cancer Screening [facility] Start: 11-27-[address] Colonography [facility] Start: 11-27-1996 Diabetes Screening Diabetes Screenin g [facility] Start: 11-27-1996 Fecal Occult Blood Fecal Occult Bloo d [facility] Start: 11-27-1996 Sigmoidoscopy Sigmoidoscopy [facility] Start: 11-27-1986 Lipid 1996 panel - Serum or Plasma Lipid Screening [facility] Start: 11-27-1970 Urine microalbumin profile DTaP,Tdap,Td Vaccine (1 - Tdap) [facility] Start: 11-27-1969 Hepatitis C Screening Hepatitis C Sc reening [facility] Start: 05-30-1952 Covid-19 Vaccine (#1) Covid-19 Vacci ne (#1) [facility] Start: 1950 Abdominal Aortic Aneurysm Screening Abdominal Aortic Aneurysm Screening [facility] End: 10-06-2021 Radex fingr minimum 2 views XR DIGIT GENERAL 3V FRONTAL/LAT/OBL LT Radiology Routine Pain 1 Occurrences starting 09/06/2020 until 10/06/2021 [facility] Comment on above: 1 Occurrences starti ng 09/06/2020 until 10/06/2021 [facility] Payers Date Payer Category Payer Self-pay [id number] 2022 [employer] ( and others) [id number] 2020 Unknown FOR LIFE [id number] 2020-Present Indemnity [id number] 2020 Unknown FOR LIFE [id number] 2020-Present [phone] [address] [place] [address] Indemnity [id number] 2020 [employer] ( and others) [id number] 2011 Medicare MEDICARE MEDICAR E A AND B [id number] 2011-Present [phone] [address] [address] [place] [address] Medicare [id number] 2011 Medicare [id number] Unknown [id number] Unknown [id number] Unknown [id number] Unknown [id number] Unknown [id number] Social History Date Type Detail [facility] Start: 1950 Sex Assigned At Not on file [facility] Start: 09-17-2021 End: 09-17-2021 Assertion Unknown if ever smoked [facility] Work Phone: Start: 1950 Sex Assigned At Male [facility] Start: 10-16-2020 Tobacco smoking stat [facility] Ex-smoker [facility] History of tobacco use Current smoker [facility] History of tobacco use Cigarette Smoker C [facility] Start: 10-16-2020 Tobacco use and exposure Former smokeless tobacco user [facility] History of tobacco use Snuff User [facility] Start: 10-16-2020 History of Social function [facility] Start: 10-16-2020 Tobacco use panel [facility] National Score (1-100), lower number is lower risk Not on file [facility] Start: 09-16-2020 End: 10-16-2020 Exposure to SARS-CoV-2 (event) Not sure [facility] Start: 09-17-2021 Tobacco smoking stat us NHIS Never smoked tobacco (finding) [facility] Start: 11-17-2024 Sex Male (finding) [facility] Instructions 12-16-2021 Note Date & Type Note Facility 12-16-2021 Instructions CompletedPatient advised to follow-up with Primary Care Physician for BMI management. [facility] Work Phone: History of Present illness Narrative 10-16-2020 Katy Sagastume)Nate - 10/16/2020 9:40 AM EST Note Date [...] 2020 10:06 AM documented in this encounter [facility] Evaluation note Note Date & Type Note Facility Evaluation note There may be informa tion available, but it has not been provided by the sender. [facility] Work Phone: Evaluation note Note Date & Type Note Facility Evaluation note No assessment information availa sneha [facility] Work Phone: Evaluation note Note Date & Type Note Facility Evaluation note Diagnosis Pain Generalized pain documented in this encounter [facility] Reason for referral (narrative) Note Date & Type Note Facility Reason for referral (narrative) No reason for referral information available [facility] Work Phone: Assessments Diagnosis Pain- Primary Generalized pain Chief Complaint Chief Complaint Description Start Date left hand post LEFT ENDOSCOP IC CARPAL TUNNEL RELEASE;ENDOSCOPIC CUBITAL TUNNEL RELEASE;INDEX FINGER PROXIMAL INTERPHALANGEAL ARTHROPLASTY;BIOPSY on 11/21/2021 Preliminary chief co mplaint data, not yet signed by the author as of Advance Directives No Advanced Directives Records Found Advance Directive Response Recorded Date/ Time Living Will No November 12, 2017 8:24am Power of Traffic Control Operator No November 12 8 8:24am Advance Directive Response Recorded Date/ Time Living Will No November 12, 2017 7:24am Power of Traffic Control Operator No November 12 8 7:24am Family History There may be information available, but it has not been provided by the sender.No Family History Records FoundNo Family History Records Found Chief Complaint and Reason for Visit Chief Complaint INDEX FINGER POST OP / PT BRING RX Chief Complaint Cough Summary Purpose Additional Source Comments Source Comments (unrecognize d section and content) In the event this informatio n is protected by the Federal Confidentiality of Alcohol and Drug Abuse Patient Records regulations: The Federal rules restrict any use of the information to criminally investigate or prosecute any alcohol or drug abuse patient.[facility] the event this information is protected by the Federal Confidentiality of Alcohol and Drug Abuse Patient Records regulations: The Federal rules restrict any use of the information to criminally investigate or prosecute any alcohol or drug abuse patient.[facility] Reason for Visit (unrecogniz ed section and content) Reason For Visit Description Postop - subsequent visit Preliminary reason f or visit data, not yet signed by the author as of left hand post LEFT ENDOSCOP IC CARPAL TUNNEL RELEASE;ENDOSCOPIC CUBITAL TUNNEL RELEASE;INDEX FINGER PROXIMAL INTERPHALANGEAL ARTHROPLASTY;BIOPSY on 11/21/2021 Reason Comments Radio Gen RMP Specialty Diagnoses / Procedures Referred By Sita t Referred To Contact Radiology / RADIO GENERAL [facility] Diagnoses Pain, unspecified XR DIGIT GENERAL 3V FRONTAL/LAT/OBL LT Procedures X-RAY EXAM OF FINGER(S) XR [facility]OO GENERAL Raheem Corado MD [address] [place] [address] [facility] [address] [place] [address] Referral ID Status Reason Start Date Expiration Date V isits Requested Visits Authorized [id number] Denied Clearance Not Met - Admin/Chairm an/Director [...] DO Attending Provider, Referring Pr carlos Active Technical Account Executive Relationship Specialty Start Date End Date Jean Paul Perla) [facility] [address] [place] [address] PCP - General 06/28/02 Team Status: Inactive Member Role Status Dates Dr. Jelena Patiño MD Primary Care Provider, [facility] Provider Active Team Status: Inactive Member Role [...] 17, 2025 End: April 17, 2025 Dr. Kasie Key MD Attending Provider Active Start: April 17, 2025 End: April 17, 2025 Team Status: Active Member Role/Relationship Status Dates Dr. Jelena Patiño MD Primary care physician Active Team Status: Inactive Member Role/Relationship Status Dates Dr. Jelena Patiño MD Primary care physician Active Start: April 17, 2025 End: April 17, 2025 Dr. Kasie Key MD Attending physician Active Start: April 17, 2025 End: April 17, 2025 Team Status: Inactive Member Role/Relationship Status Dates Dr. Jelena Patiño MD Primary care physician Active Start: June 07, 2025 End: June 07, 2025 Dr. Karri Perla MD Attending physician Active S tart: June 07, 2025 End: June 07, 2025 (unrecognized sect ion and content) No Status Records FoundNo Status Records Found INFORMATION SOURCE (unrecogn ized section and content) DATE CREATED AUTHOR 07/07/2025 [facility] DATE CREATED AUTHOR AUTHOR'S ORGANIZ ATION 07/14/2025 [facility] FOR RECORDS PERTAINING TO PATIENTS WHO ARE [...] BE BASED ON THE PRIMARY CLINICAL RECORDS. [employer] [facility]. provides no warranty or guarantee of the accuracy or completeness of information in this document.
== END | disposition home or self-care (01) ==
LOC: CVS 12:50
PROVIDERS: PCP Family Medicine; Referring Provider Family Medicine; Visit Provider Family Medicine
DX: R01.1 Cardiac murmur, unspecified (principal); E04.1 Nontoxic single thyroid nodule
CPT/HCPCS: 76536; 93306